=== PATIENT | female | born 1980 | race Caucasian/White ===

== ENCOUNTER 2017-06-07 11:43 | Emergency (ER) | payer OTHER ==
[2017-06-07 12:17] VITALS: BP 136/90; PULSE 85; TEMP 98.1; BMI 31.6
--- NOTE | 2017-06-07 13:07 | PDOC ---
History of Present Illness - General Chief Complaint: Cold Symptoms Stated Complaint: THROAT PAIN, BODY ACHES Time Seen by Provider: 06/07/17 12:49 History Source: Patient Exam Limitations: No Limitations - History of Present Illness Initial Comments: 06/07/17 13:11 37-year-old female with 24 hours of fever, myalgia, mild frontal headache, and sore throat. Patient states has been taking Motrin and Tylenol for fever and myalgia. Patient denies difficulty breathing, vomiting, cough abdominal pain, or nausea. Timing/Duration: 24 hours Severity: mild Associated Symptoms: reports: fever/chills, malaise, weakness, other (sore throat) Past History - Travel Traveled outside of the country in the last 30 days: No - Past Medical History Allergies/Adverse Reactions: Allergies Allergy/AdvReac Type Severity Reaction Status Date / Time No Known Drug Allergies Allergy Unknown Verified 06/07/17 12:18 BEES Allergy Uncoded 06/07/17 12:18 Home Medications: Ambulatory Orders Levetiracetam 250 mg PO BID 08/15/12 Gabapentin [Neurontin -] 600 mg PO TID #0 capsule 08/22/12 Topiramate [Topamax] 25 mg PO BID 08/02/13 COPD: No HTN: Yes Seizures: Yes (Epilepsy since age 24) - Reproductive History LMP Normal: Yes - Suicide/Smoking/Psychosocial Hx Smoking Status: Yes Smoking History: Never smoked Have you smoked in the past 12 months: No Number of Cigarettes Smoked Daily: 0 If you are a former smoker, when did you quit?: quit 3.5 years ago Cigars Per Day: 0 Information on smoking cessation initiated: No Hx Alcohol Use: No Drug/Substance Use Hx: No Substance Use Type: None Hx Substance Use Treatment: No Patient Lives Alone: No Lives with/in: spouse/SO Review of Systems - Review of Systems Able to Perform ROS?: Yes Constitutional: Yes: Fever HEENTM: Yes: Throat Pain Respiratory: No: Symptoms reported Cardiac (ROS): No: Symptoms Reported ABD/GI: No: Symptoms Reported : No: Symptoms Reported Musculoskeletal: Yes: Joint Pain, Muscle Pain Neurological: Yes: Headache *Physical Exam - Vital Signs Last Vital Signs Temp Pulse Resp BP Pulse Ox 98.1 F 85 18 136/90 98 06/07/17 12:15 06/07/17 12:15 06/07/17 12:15 06/07/17 12:15 06/07/17 12:15 - Physical Exam General Appearance: Yes: Nourished, Appropriately Dressed. No: Apparent Distress HEENT: positive: Pharyngeal Erythema, Tonsillar Erythema. negative: Tonsillar Exudate Neck: negative: Lymphadenopathy (R), Lymphadenopathy (L) Respiratory/Chest: positive: Lungs Clear, Normal Breath Sounds. negative: Respiratory Distress, Accessory Muscle Use Cardiovascular: positive: Regular Rhythm, Regular Rate. negative: Murmur Gastrointestinal/Abdominal: positive: Soft. negative: Tenderness Integumentary: positive: Normal Color, Warm, Moist Neurologic: positive: Motor Strength 5/5 (ambulatory) Medical Decision Making - Medical Decision Making 06/07/17 13:17 Patient with URI symptoms along with erythema to the pharyngeal region. Patient ordered for rapid strep. Patient states mother just recently diagnosed with flu 3 days ago. Based on patient's clinical exam patient be treated for influenza if rapid strep is negative 06/07/17 13:50 Rapid strep negative. Patient will be discharged home with Tamiflu with recommendations to continue with Motrin or Tylenol *DC/Admit/Observation/Transfer Diagnosis at time of Disposition: Influenza - Discharge Dispostion Disposition: HOME Condition at time of disposition: Good - Referrals Referrals: Mendez Antonio MD [Primary Care Provider] - - Patient Instructions Printed Discharge Instructions: DI for Influenza -- Adult Additional Instructions: Please take Tamiflu as prescribed until completed. please take Motrin 600 mg every 8 hours adequate fever and pain control. Drink plenty of fluids. If symptoms do not improve with above recommendations you may return to the nearest ED. Otherwise up with the primary care physician. - Post Discharge Activity
== END 2017-06-07 13:54 | disposition home or self-care (01) ==
LOC: JERFT 11:43
DX: J11.1 Influenza due to unidentified influenza virus with other respiratory manifestations (principal); I10 Essential (primary) hypertension; G40.909 Epilepsy, unspecified, not intractable, without status epilepticus; Z87.891 Personal history of nicotine dependence
CPT/HCPCS: 87070; 87430; 99281-25

== ENCOUNTER 2017-08-29 13:12 | Emergency (ER) | payer OTHER ==
[2017-08-29 13:17] VITALS: BMI 31.1
--- NOTE | 2017-08-29 13:42 | PDOC ---
History of Present Illness - General Chief Complaint: Pain, Acute Stated Complaint: BACK PAIN - History of Present Illness Initial Comments: patient is a 37 year old female, with a significant past medical history of epilepsy, HTN, prior kidney stone (2 years ago) and NIDDM, who presents to the emergency department complaining of 5 days of worsening L flank pain and dysuria. Pt states she began experiencing sharp flank plan at home 5 days prior , initially BL and then localizing to the L flank. She states the pain is intermittent, non-radiating, worsened by deep breathing, forward flexion and abdominal torsion. Pt with prior kidney stone 2 years ago, which resolved non- surgically. Pt states her pain is worse, but similar to this prior presentation. Starting last night, pt states the L flank pain has become worse and is more or less constant, 7-8/10 in intensity. She also endorses new dysuria that began last night. Of note, pt recently traveled to [place] for multiple family funerals and was drinking soda for the last few weeks, which she normally does not drink. Pt endorses a diet high in red meat, fatty foods. Pt denies f/c/n/v/d, hematuria, pyuria. Pt also with chronic lower back pain. No hx of STIs. Patient also denies MCKEE, lightheadness, chest pain, shortness of breath, headache or dizziness. Denies frequency, urgency, melena, hematochezia. Allergies: None PMH: Epilepsy, migraines, HTN, NIDDM (on metformin), prior renal stone 2 years ago Past surgical history: Social History: . No smoking , drugs, or alcohol. Sexually active with only, no contraceptive use. PMD: Dr. Antonio 08/29/17 13:39 Past History - Past Medical History Allergies/Adverse Reactions: Allergies Allergy/AdvReac Type Severity Reaction Status Date / Time No Known Drug Allergies Allergy Unknown Verified 08/29/17 13:17 BEES Allergy Uncoded 08/29/17 13:17 Home Medications: Ambulatory Orders Levetiracetam 250 mg PO BID 08/15/12 Gabapentin [Neurontin -] 600 mg PO TID #0 capsule 08/22/12 Topiramate [Topamax] 25 mg PO BID 08/02/13 COPD: No HTN: Yes Seizures: Yes (Epilepsy since age 24) - Suicide/Smoking/Psychosocial Hx Smoking Status: Yes Smoking History: Never smoked Have you smoked in the past 12 months: No Number of Cigarettes Smoked Daily: 0 If you are a former smoker, when did you quit?: quit 3.5 years ago Cigars Per Day: 0 Information on smoking cessation initiated: No Hx Alcohol Use: No Drug/Substance Use Hx: No Substance Use Type: None Hx Substance Use Treatment: No Review of Systems - Review of Systems Comments:: 08/29/17 13:40 GENERAL/CONSTITUTIONAL: No fever or chills. No weakness. HEAD, EYES, EARS, NOSE AND THROAT: No change in vision. No ear pain or discharge. No sore throat. CARDIOVASCULAR: No chest pain or shortness of breath RESPIRATORY: No cough, wheezing, or hemoptysis. GASTROINTESTINAL: No nausea, vomiting, diarrhea or constipation. GENITOURINARY: + mild dysuria beginning last night. +L flank pain with no radiation. No frequency, hematuria, pyuria MUSCULOSKELETAL: No joint or muscle swelling or pain. No neck or back pain. SKIN: No rash NEUROLOGIC: No headache, vertigo, loss of consciousness, or change in strength/ sensation. ENDOCRINE: No increased thirst. No abnormal weight change HEMATOLOGIC/LYMPHATIC: No anemia, easy bleeding, or history of blood clots. ALLERGIC/IMMUNOLOGIC: No hives or skin allergy. 08/29/17 14:19 *Physical Exam - Vital Signs Last Vital Signs Temp Pulse Resp BP Pulse Ox 98.4 F 76 24 137/87 100 08/29/17 13:15 08/29/17 13:15 08/29/17 13:15 08/29/17 13:15 08/29/17 13:15 - Physical Exam Comments: GENERAL: Young woman, Awake, alert, and fully oriented, in no acute distress HEAD: No signs of trauma, normocephalic, atraumatic EYES: PERRLA, EOMI, sclera anicteric, conjunctiva clear ENT: Auricles normal inspection, hearing grossly normal, nares patent, oropharynx clear without exudates. Moist mucosa NECK: Normal ROM, supple, no lymphadenopathy, JVD, or masses LUNGS: No distress, speaks full sentences, clear to auscultation bilaterally HEART: Regular rate and rhythm, normal S1 and S2, no murmurs, rubs or gallops, peripheral pulses normal and equal bilaterally. ABDOMEN: +L sided CVA tenderness. Soft, nontender, normoactive bowel sounds. No guarding, no rebound. No masses EXTREMITIES : Normal inspection, Normal range of motion, no edema. No clubbing or cyanosis. NEUROLOGICAL: Cranial nerves II through XII grossly intact. Normal speech, gait not evaluated, no focal sensorimotor deficits SKIN: Warm, Dry, normal turgor, no rashes or lesions noted 08/29/17 13:40 ED Treatment Course - LABORATORY CBC & Chemistry Diagram: 08/29/17 15:02 08/29/17 14:56 Medical Decision Making - Medical Decision Making 37 yo woman with pmh of HTN, NIDDM and prior renal stone 2 years ago, presenting with 5 days of worsening L flank pain and dysuria beginning last night. Ddx includes kidney stone, pyelonephritis vs. perinephric abscess, UTI, MSK back pain, PID vs. STI, ovarian cyst/torsion/abscess, pancreatitis. Will send cbc, cmp, lipase, UA, b-hcg, gc/chlamydia. Will obtain renal imaging. 08/29/17 14:21 CT abdomen negative for acute pathology. UA negative. Will discharge home with outpt f/u with PMD. 08/29/17 18:08 *DC/Admit/Observation/Transfer Diagnosis at time of Disposition: Back pain - Discharge Dispostion Disposition: HOME Condition at time of disposition: Good Decision to Admit order: No - Referrals Referrals: Mendez Antonio MD [Primary Care Provider] - 1 week - Patient Instructions Printed Discharge Instructions: DI for Low Back Pain Additional Instructions: During your stay at [facility] you were evaluated for left-sided back pain. You received urine studies and a CT scan of your abdomen, which were both normal. Please follow-up with your primary care provider for further management of your medical care. Please take tylenol 650mg every four hours until your pain resolves. Please return to the emergency department if you experience any of the following symptoms: - worsening pain in your back - blood in your urine - persistent fevers/chills - any new or concerning symptoms - Post Discharge Activity
[2017-08-29] MEDS ORDERED: ACETAMINOPHEN 325 MG TABLET (FP) PO ONE (14:09)
[2017-08-29] MEDS ORDERED: ACETAMINOPHEN 325 MG TABLET (FP) ONE (14:39)
--- NOTE | 2017-08-29 14:40 | PDOC ---
Attending Attestation - Resident Resident Name: Otilio Sanchez - ED Attending Attestation I have performed the following: I have examined & evaluated the patient, The case was reviewed & discussed with the resident, I agree w/resident's findings & plan, Exceptions are as noted - HPI HPI: 08/29/17 14:33 37y F pmhx epilipesy, htn, NIDDM, presents with 5 days of nonradiating L flank pain, hx of kidney stones dx clinically by PMD and this feels similar, seems slightly positional and was intermittent but now is constant in nature. Associated with 1 episode of dysuria yesterday, also endorsed some nausea w/o vomiting yesterday. no associated cp, sob, fever/chills, palpitations, abd pain. GENERAL: The patient is awake, alert, and fully oriented, Nontoxic - in no acute distress. HEAD: Normocephalic, atraumatic. EYES: extraocular movements intact, sclera anicteric, conjunctiva clear. ENT: Normal voice, Moist mucous membranes. NECK: Normal range of motion, supple LUNGS: Breath sounds equal, clear to auscultation bilaterally. No wheezes, no rhonchi, no rales. HEART: Regular rate and rhythm, normal S1 and S2 without murmur, rub or gallop. ABDOMEN: Soft, nontender, normoactive bowel sounds. No guarding, no rebound. No CVA tenderness EXTREMITIES: Normal range of motion, no edema. No clubbing or cyanosis. No cords, erythema, or tenderness. NEUROLOGICAL: No facial assymetry, Normal speech, PSYCH: Normal mood, normal affect. SKIN: Warm, Dry, normal turgor, Differential for the patient's symptoms includes possible kidney stones, MSK pain Will obtain UA, CBC, CMP, Will give the patient pain medicine Will reassess 08/29/17 16:59 siobhan lsign pt out to evening attending to fu with CT to r/o kidney stone - Physicial Exam PE: 09/03/17 05:34 see above - Medical Decision Making 09/03/17 05:34 see above
[2017-08-29 15:18] LABS: BASO % 0.5 % (0-2.0); EOS % 1.5 % (0-4.5); HEMATOCRIT 37.1 % (32.4-45.2); HEMOGLOBIN 12.5 GM/dL (10.7-15.3); LYMPH % 40.3 % (8-40); MCH 27.2 pg (25.7-33.7); MCHC 33.7 g/dl (32.0-36.0); MEAN CELL VOLUME 80.6 fl (80-96); MEAN PLT VOLUME 7.7 fl (7.5-11.1); MONO % 5.6 % (3.8-10.2); NEUT % 52.1 % (42.8-82.8); PLATELET COUNT 341 K/MM3 (134-434); RBC 4.61 M/mm3 (3.60-5.2); RDW 14.4 % (11.6-15.6); WHITE BLOOD COUNT 9.9 K/mm3 (4.0-10.0)
[2017-08-29 15:21] LABS: URINE APPEARANCE CLEAR; URINE BILIRUBIN NEGATIVE (<2.0 mg/dL); URINE COLOR YELLOW; URINE GLUCOSE (UA) NEGATIVE (NEGATIVE); URINE KETONE NEGATIVE (NEGATIVE); URINE LEUK ESTERASE NEGATIVE (NEGATIVE); URINE NITRITE NEGATIVE (NEGATIVE); URINE PROTEIN NEGATIVE (NEGATIVE); URINE UROBILINOGEN NEGATIVE mg/dL (0.2-1.0)
[2017-08-29 15:42] LABS: ALBUMIN 4.1 g/dl (3.4-5.0); BLOOD UREA NITROGEN 7 mg/dL (7-18); CHLORIDE 108 mmol/L (98-107); POTASSIUM 4.1 mmol/L (3.5-5.1); SODIUM 140 mmol/L (136-145)
[2017-08-29] MEDS ORDERED: KETOROLAC TROMETHAMINE 10 MG TABLET PO ONE (15:58)
[2017-08-29 16:12] LABS: ALK PHOS 87 U/L (45-117); ANION GAP 5 (8-16); BILIRUBIN,TOTAL 0.6 mg/dL (0.2-1.0); CO2 27 mmol/L (21-32); CREATININE 0.8 mg/dL (0.55-1.02); GLUCOSE,RANDOM 109 mg/dL (74-106); SGOT/AST 37 U/L (15-37); SGPT/ALT 32 U/L (12-78); TOT PROT 7.4 g/dl (6.4-8.2)
[2017-08-29] MEDS ORDERED: KETOROLAC TROMETHAMINE 30 MG/1 ML VIAL IVPUSH ONE (16:14)
[2017-08-29] MEDS ORDERED: KETOROLAC TROMETHAMINE 30 MG/1 ML VIAL ONE (16:16)
[2017-08-29] MEDS ORDERED: SODIUM CHLORIDE 1,000 ML IV SCH (17:45)
--- NOTE | 2017-08-29 18:42 | PDOC ---
*Physical Exam - Vital Signs Last Vital Signs Temp Pulse Resp BP Pulse Ox 98.4 F 76 24 137/87 100 08/29/17 13:15 08/29/17 13:15 08/29/17 13:15 08/29/17 13:15 08/29/17 13:15 - Physical Exam Comments: 08/29/17 18:40 Gen: aaox3, nad heart: +s1s2 reg lungs: cta b/l abd: soft, nt/nd +bs ext: no c/c/e back: no midline ttp, no stepoffs or deformities neuro: no focal deficits ED Treatment Course - LABORATORY CBC & Chemistry Diagram: 08/29/17 15:02 08/29/17 14:56 - ADDITIONAL ORDERS Additional order review: Laboratory Results 08/29/17 08/29/17 08/29/17 15:02 14:56 14:56 Sodium Potassium Chloride Carbon Dioxide Anion Gap BUN Creatinine Creat Clearance w eGFR Random Glucose Calcium Total Bilirubin AST ALT Alkaline Phosphatase Total Protein Albumin Lipase 201 Beta HCG, Quant < 1.0 Urine Color Yellow Urine Appearance Clear Urine pH 6.0 D Ur Specific Benton 1.015 Urine Protein Negative Urine Glucose (UA) Negative Urine Ketones Negative Urine Blood Negative Urine Nitrite Negative Urine Bilirubin Negative Urine Urobilinogen Negative Ur Leukocyte Esterase Negative 08/29/17 14:56 Sodium 140 Potassium 4.1 Chloride 108 H Carbon Dioxide 27 Anion Gap 5 L BUN 7 Creatinine 0.8 Creat Clearance w eGFR > 60 Random Glucose 109 H Calcium 9.0 Total Bilirubin 0.6 AST 37 ALT 32 Alkaline Phosphatase 87 Total Protein 7.4 Albumin 4.1 Lipase Beta HCG, Quant Urine Color Urine Appearance Urine pH Ur Specific Benton Urine Protein Urine Glucose (UA) Urine Ketones Urine Blood Urine Nitrite Urine Bilirubin Urine Urobilinogen Ur Leukocyte Esterase 08/29/17 15:02 RBC 4.61 MCV 80.6 MCHC 33.7 RDW 14.4 MPV 7.7 Neutrophils % 52.1 D Lymphocytes % 40.3 H D Monocytes % 5.6 D Eosinophils % 1.5 D Basophils % 0.5 - Medications Given in the ED: ED Medications Discontinued Medications Generic Name Dose Route Start Last Admin Trade Name Freq PRN Reason Stop Dose Admin Acetaminophen 650 mg 08/29/17 14:09 08/29/17 14:45 Tylenol - PO 08/29/17 14:10 650 mg ONCE ONE Administration Ketorolac Tromethamine 10 mg 08/29/17 15:58 08/29/17 17:39 Toradol PO 08/29/17 15:59 Not Given ONCE ONE Ketorolac Tromethamine 30 mg 08/29/17 16:14 08/29/17 16:38 Toradol Injection - IVPUSH 08/29/17 16:15 30 mg ONCE ONE Administration Medical Decision Making - Medical Decision Making 08/29/17 18:41 a/p: 37yo female with L flank pain - signed out by the prior attending pending ct abd/pelvis to eval for flank pain -pt states feeling better -seen by dr. rasmussen in the ed -no renal stones seen on ct -pt aware of liver cysts -discussed ct results and gave patient a copy of ct results answered all questions stable for d/c to home and follow up with PMD as outpt *DC/Admit/Observation/Transfer Diagnosis at time of Disposition: Back pain - Discharge Dispostion Disposition: HOME Condition at time of disposition: Good - Referrals Referrals: Mendez Antonio MD [Primary Care Provider] - 1 week - Patient Instructions Additional Instructions: During your stay at [facility] you were evaluated for left-sided back pain. You received urine studies and a CT scan of your abdomen, which were both normal. Please follow-up with your primary care provider for further management of your medical care. - Post Discharge Activity
[2017-08-29 19:15] VITALS: BP 124/93; PULSE 68; TEMP 98.3
== END 2017-08-29 19:15 | disposition home or self-care (01) ==
LOC: JER 13:12
DX: R10.32 Left lower quadrant pain (principal); I10 Essential (primary) hypertension; E11.9 Type 2 diabetes mellitus without complications; Z79.84 Long term (current) use of oral hypoglycemic drugs; Z87.442 Personal history of urinary calculi; Z87.891 Personal history of nicotine dependence
CPT/HCPCS: 36415; 74176; 80053; 81003; 83690; 84702; 85025; 87491; 87591; 99284-25; J7030

== ENCOUNTER 2018-03-10 08:40 | Emergency (ER) | payer OTHER ==
[2018-03-10 09:11] VITALS: BP 112/77; PULSE 85; TEMP 97.9; BMI 28.3
--- NOTE | 2018-03-10 10:38 | PDOC ---
History of Present Illness - General Chief Complaint: Respiratory Stated Complaint: SOB Time Seen by Provider: 03/10/18 10:15 History Source: Patient - History of Present Illness Initial Comments: 03/10/18 10:33 Patient with no significant past medical history present with complaint of 4 day history of persistent cough, nasal congestion, scratchy throat and intermittent chest tightness. Denies fever, chills. Denies any other symptoms Timing/Duration: other (4 days) Past History - Past Medical History Allergies/Adverse Reactions: Allergies Allergy/AdvReac Type Severity Reaction Status Date / Time No Known Drug Allergies Allergy Unknown Verified 03/10/18 10:02 BEES Allergy Uncoded 03/10/18 10:02 Home Medications: Ambulatory Orders Levetiracetam 250 mg PO BID 08/15/12 Gabapentin [Neurontin -] 600 mg PO TID #0 capsule 08/22/12 Topiramate [Topamax] 25 mg PO BID 08/02/13 Azithromycin [Zithromax Tri-Dl (3 DAYS) -] 500 mg PO DAILY #3 tablet 03/10/18 Benzonatate [Tessalon Pearls -] 100 mg PO TID PRN #21 capsule 03/10/18 Ipratropium [place] 2 spray NS BID PRN #1 spray 03/10/18 Methylprednisolone [Medrol Dose Dl] 4 mg PO ASDIR #21 tablet 03/10/18 COPD: No Diabetes: Yes (PREDIABETIC) HTN: Yes Seizures: Yes (Epilepsy since age 24) - Suicide/Smoking/Psychosocial Hx Smoking Status: Yes Smoking History: Never smoked Have you smoked in the past 12 months: No Number of Cigarettes Smoked Daily: 0 If you are a former smoker, when did you quit?: quit 3.5 years ago Cigars Per Day: 0 Hx Alcohol Use: No Drug/Substance Use Hx: No Substance Use Type: None Hx Substance Use Treatment: No Review of Systems - Review of Systems Able to Perform ROS?: Yes Is the patient limited Thai proficient: No Constitutional: No: Chills, Fever HEENTM: Yes: Symptoms Reported, See HPI, Nose Congestion, Throat Pain. No: Eye Pain, Blurred Vision, Tearing, Recent change in vision, Double Vision, Cataracts , Ear Pain, Ocular Prothesis, Ear Discharge, Nose Pain, Tinnitus, Nose Bleeding , Hearing Loss, Throat Swelling, Mouth Pain, Dental Problems, Difficulty Swallowing, Mouth Swelling, Other Respiratory: Yes: See HPI, Cough. No: Orthopnea, Shortness of Breath, SOB with Exertion, SOB at Rest, Stridor, Wheezing, Productive cough, Hemoptysis Cardiac (ROS): Yes: Chest Tightness (intermittent). No: Symptoms Reported, See HPI, Chest Pain, Edema, Irregular Heart Rate, Lightheadedness, Palpitations, Syncope, Other ABD/GI: No: Symptoms Reported, See HPI, Abdominal Distended, Abd. Pain w/ defecation, Blood Streaked Bowels, Constipated, Diarrhea, Difficulty Swallowing , Nausea, Poor Appetite, Poor Fluid Intake, Rectal Bleeding, Vomiting, Indigestion, Abdominal cramping, Tarry Stools, Other All Other Systems: Reviewed and Negative *Physical Exam - Vital Signs Last Vital Signs Temp Pulse Resp BP Pulse Ox 97.9 F 85 20 112/77 97 03/10/18 09:08 03/10/18 09:08 03/10/18 09:08 03/10/18 09:08 03/10/18 09:08 - Physical Exam Comments: 03/10/18 10:34 GENERAL: Well developed, well nourished. Awake and alert. No acute distress. HEENT: Normocephalic, atraumatic. PERRLA, EOMI. No conjunctival pallor. Sclera are non-icteric. Moist mucous membranes. Oropharynx is clear. NECK: Supple. Full ROM. CARDIOVASCULAR: Regular rate and rhythm. No murmurs, rubs, or gallops. Distal pulses are 2+ and symmetric. PULMONARY: No evidence of respiratory distress. Lungs clear to auscultation bilaterally. No wheezing, rales or rhonchi. ABDOMINAL: Soft. Non-tender. Non-distended. No rebound or guarding. No organomegaly. Normoactive bowel sounds. MUSCULOSKELETAL Normal range of motion at all joints. EXTREMITIES: No cyanosis. No clubbing. No edema. No calf tenderness. SKIN: Warm and dry. Normal capillary refill. No rashes. No jaundice. NEUROLOGICAL: Alert, awake, appropriate. Gait is normal without ataxia. PSYCHIATRIC: Cooperative. Good eye contact. Appropriate mood General Appearance: Yes: Nourished, Appropriately Dressed. No: Apparent Distress Medical Decision Making - Medical Decision Making 03/10/18 10:34 Patient with no significant past medication present with complaint of 4 day history of persistent cough, nasal congestion, and runny nose and 2 days history of intermittent chest tightness. Exam significant for no wheezing with lungs clear to auscultation bilateral. Patient stable for discharge on outpatient treatment for URI and cough with PCP follow-up. *DC/Admit/Observation/Transfer Diagnosis at time of Disposition: Cough URI (upper respiratory infection) Qualifiers: URI type: unspecified URI Qualified Code(s): J06.9 - Acute upper respiratory infection, unspecified Pharyngitis Qualifiers: Pharyngitis/tonsillitis etiology: unspecified etiology Qualified Code(s): J02.9 - Acute pharyngitis, unspecified - Discharge Dispostion Disposition: HOME Condition at time of disposition: Stable Decision to Admit order: No - Prescriptions Prescriptions: Azithromycin [Zithromax Tri-Dl (3 DAYS) -] 500 mg PO DAILY #3 tablet Benzonatate [Tessalon Pearls -] 100 mg PO TID PRN #21 capsule PRN Reason: Cough Ipratropium [place] 2 spray NS BID PRN #1 spray PRN Reason: nasal congestion Methylprednisolone [Medrol Dose Dl] 4 mg PO ASDIR #21 tablet - Referrals Referrals: Mendez Antonio MD [Primary Care Provider] - - Patient Instructions Printed Discharge Instructions: Common Cold Additional Instructions: take medication as prescribed. increase fluid intake. follow-up with PCP as needed - Post Discharge Activity
== END 2018-03-10 10:42 | disposition home or self-care (01) ==
LOC: JERFT 08:40
DX: J06.9 Acute upper respiratory infection, unspecified (principal); J02.9 Acute pharyngitis, unspecified; I10 Essential (primary) hypertension; G40.909 Epilepsy, unspecified, not intractable, without status epilepticus; R73.03 Prediabetes
CPT/HCPCS: 99281-25

== ENCOUNTER 2018-06-09 10:40 | Emergency (ER) | payer OTHER ==
[2018-06-09 10:48] VITALS: BP 151/93; PULSE 86; TEMP 98.4; BMI 32.5
--- NOTE | 2018-06-09 11:01 | PDOC ---
History of Present Illness - General Chief Complaint: Sore Throat Stated Complaint: SORE THROAT, CONJESTED Time Seen by Provider: 06/09/18 10:59 History Source: Patient, Old Records Exam Limitations: No Limitations - History of Present Illness Initial Comments: 06/09/18 11:01 CHIEF COMPLAINT: Sore throat, congestion HISTORY OF PRESENT ILLNESS: This is a 38-year-old female with a history of seizure disorder (last seizu REVIEW OF SYSTEMS: GENERAL/CONSTITUTIONAL: Subjective fevers. No nightsweats or weight loss. ENT: Nasal congestion, sore throat, painful swallowing. LUNGS: Dry cough. Pleuritic pain. No shortness of breath. HEART: Chest pain with deep breathing/coughing only. No palpitations. No leg swelling. NEURO: No weakness or numbness. SKIN: No rashes or easy bruising. PHYSICAL EXAM: GENERAL: Alert, oriented, no acute distress. EENT: Coryza, rhinorrhea, pharyngeal erythema without tonsillar swelling or exudates. PULM: Wheezes right upper lobe. No tachypnea, speaking full sentences. CARDIAC: RRR, S1/S2, no murmurs. NEURO: CN II-XII grossly intact. Ambulatory with steady gait. SKIN: No rashes or lesions. Past History - Past Medical History Allergies/Adverse Reactions: Allergies Allergy/AdvReac Type Severity Reaction Status Date / Time No Known Drug Allergies Allergy Unknown Verified 06/09/18 11:03 BEES Allergy Uncoded 06/09/18 11:03 Home Medications: Ambulatory Orders Levetiracetam 250 mg PO BID 08/15/12 Gabapentin [Neurontin -] 600 mg PO TID #0 capsule 08/22/12 Topiramate [Topamax] 25 mg PO BID 08/02/13 Benzonatate [Tessalon Pearls -] 100 mg PO TID PRN #21 capsule 06/09/18 Ibuprofen [Motrin -] 600 mg PO QID PRN #20 tablet 06/09/18 Metformin HCl [Glucophage] 1,000 mg PO BID 06/09/18 COPD: No Diabetes: Yes (PREDIABETIC) HTN: Yes Seizures: Yes (Epilepsy since age 24) - Suicide/Smoking/Psychosocial Hx Smoking Status: Yes Smoking History: Never smoked Have you smoked in the past 12 months: No Number of Cigarettes Smoked Daily: 0 If you are a former smoker, when did you quit?: quit 3.5 years ago Cigars Per Day: 0 Hx Alcohol Use: No Drug/Substance Use Hx: No Substance Use Type: None Hx Substance Use Treatment: No *Physical Exam - Vital Signs Last Vital Signs Temp Pulse Resp BP Pulse Ox 98.4 F 86 20 151/93 100 06/09/18 10:46 06/09/18 10:46 06/09/18 10:46 06/09/18 10:46 06/09/18 10:46 Moderate Sedation - Procedure Monitoring Vital Signs: Procedure Monitoring Vital Signs Temperature 98.4 F 06/09/18 10:46 Pulse Rate 86 06/09/18 10:46 Respiratory Rate 20 06/09/18 10:46 Blood Pressure 151/93 06/09/18 10:46 O2 Sat by Pulse Oximetry (%) 100 06/09/18 10:46 Medical Decision Making - Medical Decision Making 06/09/18 11:54 A/P: 38-year-old female with flu-like symptoms. Rapid flu neg Rapid strep neg CXR wet read: no acute process Ibuprofen for pain *DC/Admit/Observation/Transfer Diagnosis at time of Disposition: Throat pain in adult - Discharge Dispostion Disposition: HOME Condition at time of disposition: Stable Decision to Admit order: No - Referrals Referrals: Mendez Antonio MD [Primary Care Provider] - 1 week - Patient Instructions Printed Discharge Instructions: DI for Pharyngitis/Tonsillopharyngitis -- Adult Additional Instructions: Your rapid strep, rapid flu, and chest xray are all negative Rest and stay well-hydrated Take ibuprofen and Tessalon as prescribed for symptoms Follow up with Dr. Combs next week Return for difficulty breathing or any other concerning symptoms - Post Discharge Activity Forms/Work/School Notes: Back to Work
[2018-06-09] MEDS ORDERED: IBUPROFEN 600 MG TABLET (FP) PO ONE ×2 (11:06→11:28)
== END 2018-06-09 12:07 | disposition home or self-care (01) ==
LOC: JERFT 10:40
DX: J02.9 Acute pharyngitis, unspecified (principal); I10 Essential (primary) hypertension; E11.9 Type 2 diabetes mellitus without complications; Z79.84 Long term (current) use of oral hypoglycemic drugs; G40.909 Epilepsy, unspecified, not intractable, without status epilepticus
CPT/HCPCS: 71046-TC-FY; 84703; 87070; 87804; 87880; 99281-25

== ENCOUNTER 2018-07-29 14:51 | Emergency (ER) | payer OTHER ==
[2018-07-29] MEDS ORDERED: ONDANSETRON 4 MG/2 ML VIAL IVPUSH ONE (14:56)
[2018-07-29] MEDS ORDERED: SODIUM CHLORIDE 1,000 ML IV STA ×2 (14:56→16:24)
--- NOTE | 2018-07-29 14:56 | PDOC ---
Rapid Medical Evaluation Time Seen by Provider: 07/29/18 14:54 Medical Evaluation: Allergies Allergy/AdvReac Type Severity Reaction Status Date / Time No Known Drug Allergies Allergy Unknown Verified 06/09/18 11:03 BEES Allergy Uncoded 06/09/18 11:03 07/29/18 14:54 I have performed a brief in-person evaluation of this patient. The patient presents with a chief complaint of: nausea, vomiting and chills; also with rash to chest x2 weeks Pertinent physical exam findings: papular rash to clothing lines. ABD SNTND. No CVAT. I have ordered the following: labs, urine The patient will proceed to the ED for further evaluation. Discharge Disposition - Diagnosis Nausea & vomiting - Referrals - Patient Instructions - Post Discharge Activity
[2018-07-29 15:00] VITALS: PULSE 97; BMI 33.3
[2018-07-29 15:23] LABS: BASO % 0.3 % (0-2.0); EOS % 0.1 % (0-4.5); HEMATOCRIT 39.1 % (32.4-45.2); HEMOGLOBIN 12.6 GM/dL (10.7-15.3); MCH 24.2 pg (25.7-33.7); MCHC 32.2 g/dl (32.0-36.0); MEAN CELL VOLUME 75.2 fl (80-96); MONO % 1.7 % (3.8-10.2); NEUT % 93.9 % (42.8-82.8); PLATELET COUNT 398 K/MM3 (134-434); WHITE BLOOD COUNT 13.8 K/mm3 (4.0-10.0)
[2018-07-29] MEDS ORDERED: ONDANSETRON 4 MG/2 ML VIAL ONE (15:39)
[2018-07-29] MEDS ORDERED: ACETAMINOPHEN 1000 MG/100 ML VIAL (NON FORMULARY) IVPB ONE (15:52)
--- NOTE | 2018-07-29 15:59 | PDOC ---
History of Present Illness - General Chief Complaint: Nausea/Vomiting Stated Complaint: VOMITING / NAUSEA / RASH ON CHEST Time Seen by Provider: 07/29/18 14:54 History Source: Patient Exam Limitations: No Limitations - History of Present Illness Initial Comments: Pt is a 38 yo F, with PMH of HTN, NIDDM (on metformin, sugars controlled usually in 100s), epilepsy (last sz 1 mo ago), and nephrolithiasis, who is presenting with complaints of diffuse abdominal pain, and many episodes of NBNB vomiting and loose brown stool since this AM. Pt also endorses subjective fever/ chills, and she feels mild discomfort in her chest and back as well after multiple episodes of vomiting. Pt states the symptoms have started since she woke up, and has had consistent vomiting and loose stool since that time. Pt had a home cooked meal last night, and nobody else in the house is sick that ate the same food. Pt did not take any OTC medications before coming to the ER, and has not been able to tolerate PO food or fluid intake since this AM. Pt denies any headache, vision changes, syncope, chest pain, palpitations, SOB, urinary symptoms, or leg swelling. Social: Pt denies any cigarette, alcohol, or drug use. Pt denies any recent travel or sick contacts. Surgical: . Family: no relevant history. 07/29/18 16:47 Past History - Travel Traveled outside of the country in the last 30 days: No Close contact w/someone who was outside of country & ill: No - Past Medical History Allergies/Adverse Reactions: Allergies Allergy/AdvReac Type Severity Reaction Status Date / Time No Known Drug Allergies Allergy Unknown Verified 06/09/18 11:03 BEES Allergy Uncoded 06/09/18 11:03 Home Medications: Ambulatory Orders Levetiracetam 250 mg PO HS 08/15/12 Gabapentin [Neurontin -] 600 mg PO TID #0 capsule 08/22/12 Topiramate [Topamax] 200 mg PO BID 08/02/13 Metformin HCl [Glucophage] 1,000 mg PO BID 06/09/18 Famotidine [Pepcid -] 20 mg PO DAILY PRN #7 tablet 07/29/18 Levetiracetam 1,200 mg PO DAILY 07/29/18 Zonisamide [Zonegran] 100 mg PO BID 07/29/18 COPD: No Diabetes: Yes (PREDIABETIC) HTN: Yes Seizures: Yes (Epilepsy since age 24) - Surgical History Abdominal Surgery: Yes () - Suicide/Smoking/Psychosocial Hx Smoking Status: Yes Smoking History: Never smoked Have you smoked in the past 12 months: No Number of Cigarettes Smoked Daily: 0 If you are a former smoker, when did you quit?: quit 3.5 years ago Cigars Per Day: 0 Information on smoking cessation initiated: No Hx Alcohol Use: No Drug/Substance Use Hx: No Substance Use Type: None Hx Substance Use Treatment: No Review of Systems - Review of Systems Able to Perform ROS?: Yes Is the patient limited Maori proficient: No Constitutional: Yes: Chills, Fever (subjective), Weight Stable. No: Diaphoresis , Loss of Appetite, Malaise, Night Sweats, Weakness HEENTM: No: Blurred Vision, Double Vision, Nose Congestion, Throat Pain, Throat Swelling, Difficulty Swallowing Respiratory: No: Cough, Orthopnea, Shortness of Breath, Productive cough, Hemoptysis Cardiac (ROS): No: Chest Pain, Edema, Irregular Heart Rate, Lightheadedness, Palpitations, Syncope, Chest Tightness ABD/GI: Yes: See HPI, Diarrhea, Nausea, Vomiting. No: Abdominal Distended, Blood Streaked Bowels, Constipated, Poor Appetite, Poor Fluid Intake, Indigestion, Abdominal cramping : No: Burning, Dysuria, Frequency, Pain, Urgency Musculoskeletal: Yes: Muscle Pain (diffuse body aches and shoulder pain after vomiting). No: Back Pain, Joint Pain, Muscle Weakness, Neck Pain, Joint Stiffness Integumentary: Yes: Rash (rash/acne on chest x2 weeks along chest) Neurological: Yes: Seizure. No: Headache, Numbness, Weakness, Unsteady Gait, Dizziness Psychiatric: No: Sleep Pattern Change, Change in Appetite Endocrine: No: Increased Urine, Change in Weight Hematologic/Lymphatic: No: Anemia, Blood Clots, Easy Bleeding, Easy Bruising All Other Systems: Reviewed and Negative *Physical Exam - Vital Signs Last Vital Signs Temp Pulse Resp BP Pulse Ox 99.4 F 97 H 20 145/100 99 07/29/18 14:56 07/29/18 14:56 07/29/18 14:56 07/29/18 14:56 07/29/18 14:56 - Physical Exam Comments: Low grade temp 99.4 oral, HR 97, 99% on RA. Pt has active NBNB vomiting in ED, appears uncomfortable. Obese body habitus. PE showed pt alert and oriented. bobbin drier generally intact, muscular strength and sensation intact. No tenderness elicited with neck flexion or extension. No midline spinal tenderness. Head normocephalic, atraumatic. Eyes PERRLA, EOMI. Oropharynx without erythema or exudates, no LAD b/l. No nasal congestion, hearing intact. Clear heart sounds, S1/S2, no JVD, b/l pedal edema, or heart murmur. Clear lung sounds, no respiratory distress, wheezes, crackles, or accessory muscle use. No abdominal or CVA tenderness to palpation, no rebound, no guarding. Abdomen soft, non-distended, and with HYPERactive bowel sounds. Small pustules/comedones on chest along area of bra straps. Skin without jaundice or other rash/petechiae. 07/29/18 16:09 07/29/18 16:17 ED Treatment Course - LABORATORY CBC & Chemistry Diagram: 07/29/18 15:14 07/29/18 15:14 - ADDITIONAL ORDERS Additional order review: 07/29/18 15:14 RBC 5.20 MCV 75.2 L MCHC 32.2 RDW 16.0 H MPV 7.0 L Neutrophils % 93.9 H D Lymphocytes % 4.0 L D Monocytes % 1.7 L Eosinophils % 0.1 D Basophils % 0.3 Medical Decision Making - Medical Decision Making Pt was seen at bedside, also will be seen by attending Dr. Alexander. Pt presenting with complaints of diffuse abdominal pain, and many episodes of NBNB vomiting and loose brown stool since this AM. Pt also endorses subjective fever/ chills, and she feels mild discomfort in her chest and back as well after multiple episodes of vomiting. Pt states the symptoms have started since she woke up, and has had consistent vomiting and loose stool since that time. Pt had a home cooked meal last night, and nobody else in the house is sick that ate the same food. Pt did not take any OTC medications before coming to the ER, and has not been able to tolerate PO food or fluid intake since this AM. Pt denies any headache, vision changes, syncope, chest pain, palpitations, SOB, urinary symptoms, or leg swelling. Likely viral gastroenteritis considering low-grade temp with n/v/d that is NBNB (less likely bacterial food poisoning). Pt has no gastritis history, NSAIDS or alcohol use. Booerhaave and gastric perforation less likely as pt appears fairly comfortable, no chest crepitus, abdomen is non-distended and non-tender. Ordered work-up including CBC, CMP, UA, urine culture, urine , chest x- ray, rapid influenza. Provided 2 L IV NS, 20 mg IV pepcid, 4 mg IV zofran, 1 g ofirmev, for improvement of nausea and vomiting. Will continue to reassess pt and monitor for symptomatic improvement. 07/29/18 15:32 CBC: WBC 13.8, with neutrophilic predominance CMP generally WNL, lipase 193 ECG: NSR, QTc 500, MN 126. QRS 100. TWIs in V2-V3, not present on prior ECG ( 2012). No significant ST segment changes. 07/29/18 16:24 Pt improved after pepcid, zofran, reglan and benadryl. Pt tolerated PO intake in the ED with no further vomiting or diarrhea. Pt to follow-up with PCP. Sent PO 20 mg pepcid to pt pharmacy. Strict return precautions provided with pt understanding. 07/29/18 18:35 *DC/Admit/Observation/Transfer Diagnosis at time of Disposition: Nausea & vomiting Qualifiers: Vomiting type: unspecified Vomiting Intractability: non-intractable Qualified Code(s): R11.2 - Nausea with vomiting, unspecified - Discharge Dispostion Disposition: HOME Condition at time of disposition: Improved Decision to Admit order: No - Prescriptions Prescriptions: Famotidine [Pepcid -] 20 mg PO DAILY PRN #7 tablet PRN Reason: Indigestion - Referrals Referrals: Deion Ramos MD [Staff Physician] - - Patient Instructions Printed Discharge Instructions: DI for Viral Gastroenteritis -- Adult Additional Instructions: You were seen in the ER today for nausea, vomiting, and diarrhea which improved after medications and fluids. The results of your labs and imaging today showed a small infection, likely due to a virus, but were otherwise normal. Please follow-up with your primary care doctor within 1-2 days to discuss your visit and make sure your symptoms have improved. Please return to the ER if you have any worsening pain, development of fevers or chills, loss of consciousness, inability to tolerate food or fluids, or any other concerns. I have sent pepcid (acid change coordinator) to your pharmacy. Please take this medication as prescribed. - Post Discharge Activity
[2018-07-29] MEDS ORDERED: ACETAMINOPHEN INJECTION 100 ML IVPB ONE (16:05)
[2018-07-29 16:10] LABS: PH,URINE 5.5 (5.0-8.0); URINE APPEARANCE CLEAR; URINE BILIRUBIN NEGATIVE (NEGATIVE); URINE COLOR YELLOW; URINE GLUCOSE (UA) 1+ (NEGATIVE); URINE KETONE 3+ (NEGATIVE); URINE LEUK ESTERASE NEGATIVE (NEGATIVE); URINE NITRITE NEGATIVE (NEGATIVE); URINE PROTEIN TRACE (NEGATIVE); URINE UROBILINOGEN 0.2 mg/dL (0.2-1.0)
[2018-07-29 16:13] LABS: ALBUMIN 4.2 g/dl (3.4-5.0); ALK PHOS 107 U/L (45-117); ANION GAP 11 MMOL/L (8-16); BILIRUBIN,TOTAL 0.7 mg/dL (0.2-1); BLOOD UREA NITROGEN 12 mg/dL (7-18); CALCIUM 9.1 mg/dL (8.5-10.1); CHLORIDE 104 mmol/L (98-107); CO2 23 mmol/L (21-32); CREATININE 0.9 mg/dL (0.55-1.3); GLUCOSE,RANDOM 153 mg/dL (74-106); LIPASE 193 U/L (73-393); POTASSIUM 4.6 mmol/L (3.5-5.1); SGOT/AST 65 U/L (15-37); SGPT/ALT 61 U/L (13-61); SODIUM 138 mmol/L (136-145); TOT PROT 8.2 g/dl (6.4-8.2)
[2018-07-29] MEDS ORDERED: FAMOTIDINE 20 MG/50 ML IVPB 20 MG/50 ML MG IVPB ONE ×2 (16:24→17:06)
--- NOTE | 2018-07-29 16:26 | PDOC ---
Attending Attestation - Resident Resident Name: TrishRosa - ED Attending Attestation I have performed the following: I have examined & evaluated the patient, The case was reviewed & discussed with the resident, I agree w/resident's findings & plan - HPI HPI: 07/29/18 16:22 38-year-old female with hypertension, diabetes presents with intractable nausea/ vomiting/diarrhea/abdominal pain since this morning. Patient was in her usual state of normal health, awoke this morning with multiple episodes of nonbloody nonbilious emesis and watery diarrhea, epigastric abdominal pain radiating to the back which is constant, chills but no fever. Never had indication for endoscopy or colonoscopy, no history of recurring GI issues. No recent travel or antibiotics, has been visiting a hospital frequently because her daughter had surgery. Ate rice and zucchini last night but nobody else got sick from it. No excessive NSAID or alcohol use - Physicial Exam PE: 07/29/18 16:23 Temp 99.4, vitals otherwise stable Dry mucosa, no jaundice or pallor Neck is supple, lying comfortably in stretcher speaking full sentences Heart is regular, lungs are clear Abdomen is soft/nondistended, epigastric discomfort to palpation without guarding or rebound. No right upper quadrant tenderness. No CVA tenderness. Rash as noted, not petechial - Medical Decision Making 07/29/18 16:24 38-year-old female with nausea/vomiting/diarrhea/epigastric discomfort that began this morning, no findings on examination to suggest focal peritoneal process, hemodynamically stable. Presentation seems most consistent with gastritis/gastroenteritis, question viral versus food mediated. Labs show slight leukocytosis but normal LFTs and lipase Received IV fluids, antiemetics, antacids No indication for emergent imaging We'll reassess, PO trial, and dispo accordingly. Heart Score/ECG Review #1 ECG reviewed & interpreted by me at: 14:54 General ECG Interpretation: Sinus Rhythm, Normal Rate (96), Normal Intervals ( QTC prolonged at 500), No acute ischemic changes
[2018-07-29] MEDS ORDERED: METOCLOPRAMIDE HCL INJECTION 10 MG/2 ML VIAL IVPUSH ONE (17:34)
[2018-07-29] MEDS ORDERED: METOCLOPRAMIDE HCL INJECTION 10 MG/2 ML VIAL ONE (17:53)
[2018-07-29 18:59] VITALS: BP 118/72; TEMP 99
[2018-07-29 19:08] LABS: PLATELET ESTIMATE ADEQUATE
--- NOTE | 2018-07-30 11:05 | EKG ---
Test Reason : Blood Pressure : / mmHG Vent. Rate : 096 BPM Atrial Rate : 096 BPM P-R Int : 126 ms QRS Dur : 100 ms QT Int : 396 ms P-R-T Axes : 039 043 027 degrees QTc Int : 500 ms NORMAL SINUS RHYTHM CANNOT RULE OUT ANTERIOR INFARCT , AGE UNDETERMINED PROLONGED QT ABNORMAL ECG WHEN COMPARED WITH ECG OF 19-AUG-2012 19:28, QT HAS LENGTHENED Confirmed by MARINO WASHINGTON, AVTAR ([id number]) on 07/30/2018 11:05:07 AM Referred By: Confirmed By:AVTAR PICHARDO MD
== END 2018-07-29 18:47 | disposition home or self-care (01) ==
LOC: JER 14:51
PROC: 3E0337Z Introduction of Electrolytic and Water Balance Substance into Peripheral Vein, Percutaneous Approach (ICD-10-PCS; principal; 2018-07-29)
PROC: 3E033NZ Introduction of Analgesics, Hypnotics, Sedatives into Peripheral Vein, Percutaneous Approach (ICD-10-PCS; 2018-07-29)
PROC: 3E033GC Introduction of Other Therapeutic Substance into Peripheral Vein, Percutaneous Approach (ICD-10-PCS; 2018-07-29)
PROC: 3E033GC Introduction of Other Therapeutic Substance into Peripheral Vein, Percutaneous Approach (ICD-10-PCS; 2018-07-29)
PROC: 3E033GC Introduction of Other Therapeutic Substance into Peripheral Vein, Percutaneous Approach (ICD-10-PCS; 2018-07-29)
PROC: 3E033GC Introduction of Other Therapeutic Substance into Peripheral Vein, Percutaneous Approach (ICD-10-PCS; 2018-07-29)
DX: A08.4 Viral intestinal infection, unspecified (principal); B97.89 Other viral agents as the cause of diseases classified elsewhere; I10 Essential (primary) hypertension; E11.9 Type 2 diabetes mellitus without complications; Z79.84 Long term (current) use of oral hypoglycemic drugs; G40.909 Epilepsy, unspecified, not intractable, without status epilepticus
CPT/HCPCS: 36415; 71046-TC-FY; 80053; 81003; 83690; 84703; 85025; 87086; 87804; 93005; 93010; 96361; 96365; 96375; 99283-25; J0131; J7030

== ENCOUNTER 2019-05-18 12:33 | Emergency (ER) | payer OTHER ==
[2019-05-18 12:48] VITALS: BP 127/82; PULSE 76; TEMP 98.2; BMI 30.9
--- NOTE | 2019-05-18 14:33 | PDOC ---
History of Present Illness - General Chief Complaint: Cold Symptoms Stated Complaint: FLU SYMPTOMS Time Seen by Provider: 05/18/19 13:26 - History of Present Illness Initial Comments: 05/18/19 14:32 39-year-old female with influenza-like symptoms x2 days 05/18/19 14:32 Prediabetic hypertensive with seizure disorder Past History - Past Medical History Allergies/Adverse Reactions: Allergies Allergy/AdvReac Type Severity Reaction Status Date / Time No Known Drug Allergies Allergy Unknown Verified 06/09/18 11:03 BEES Allergy Uncoded 06/09/18 11:03 Home Medications: Ambulatory Orders Levetiracetam 250 mg PO HS 08/15/12 Gabapentin [Neurontin -] 600 mg PO TID #0 capsule 08/22/12 Topiramate [Topamax] 200 mg PO BID 08/02/13 Metformin HCl [Glucophage] 1,000 mg PO BID 06/09/18 Famotidine [Pepcid -] 20 mg PO DAILY PRN #7 tablet 07/29/18 Levetiracetam 1,200 mg PO DAILY 07/29/18 Zonisamide [Zonegran] 100 mg PO BID 07/29/18 COPD: No Diabetes: Yes (PREDIABETIC) HTN: Yes Seizures: Yes (Epilepsy since age 24) - Surgical History Abdominal Surgery: Yes () - Psycho Social/Smoking Cessation Hx Smoking Status: Yes Smoking History: Never smoked Have you smoked in the past 12 months: No Number of Cigarettes Smoked Daily: 0 If you are a former smoker, when did you quit?: quit 3.5 years ago Cigars Per Day: 0 Information on smoking cessation initiated: No Hx Alcohol Use: No Drug/Substance Use Hx: No Substance Use Type: None Hx Substance Use Treatment: No Review of Systems - Review of Systems Constitutional: Yes: Chills, Fever, Malaise, Night Sweats HEENTM: Yes: Nose Congestion, Throat Pain, Difficulty Swallowing Respiratory: Yes: Cough *Physical Exam - Vital Signs Last Vital Signs Temp Pulse Resp BP Pulse Ox 98.2 F 76 18 127/82 98 05/18/19 12:46 05/18/19 12:46 05/18/19 12:46 05/18/19 12:46 05/18/19 12:46 - Physical Exam 05/18/19 14:32 GENERAL: The patient is awake, alert, and fully oriented, in no acute distress. HEAD: Normal with no signs of trauma. EYES: sclera anicteric, conjunctiva clear. ENT: Ears normal tympanic membranes normal oropharynx clear uvula midline NECK: Normal range of motion LUNGS: Breath sounds equal, clear to auscultation bilaterally. No wheezes, and no crackles. HEART: S1 and S2 without murmur, rub or gallop. ABDOMEN: Soft, nontender, normoactive bowel sounds. No guarding, no rebound. No masses. EXTREMITIES: Normal range of motion, no edema. No clubbing or cyanosis. No cords, erythema, or tenderness. NEUROLOGICAL: Cranial nerves II through XII grossly intact. PSYCH: Normal mood, normal affect. SKIN: Warm, Dry, normal turgor, no rashes or lesions noted. Medical Decision Making - Medical Decision Making 05/18/19 14:32 We will treat for influenza based on symptoms and length of sickness Discharge - Discharge Information Problems reviewed: Yes Clinical Impression/Diagnosis: URI (upper respiratory infection) Condition: Stable Disposition: HOME - Admission No - Follow up/Referral Referrals: Mendez Antonio MD [Primary Care Provider] - - Patient Discharge Instructions Patient Printed Discharge Instructions: DI for Viral Upper Respiratory Infection -- Adult Additional Instructions: Tylenol Motrin as directed for fever and body aches. Return to the emergency room for worsening symptoms and without fail follow-up with your primary care physician in 1 to 2 days for further evaluation and treatment options. Please take the Tamiflu as directed. - Post Discharge Activity
== END 2019-05-18 14:36 | disposition home or self-care (01) ==
LOC: JERFT 12:33
DX: J06.9 Acute upper respiratory infection, unspecified (principal); G40.909 Epilepsy, unspecified, not intractable, without status epilepticus; I10 Essential (primary) hypertension; E11.9 Type 2 diabetes mellitus without complications; Z79.84 Long term (current) use of oral hypoglycemic drugs
CPT/HCPCS: 99281-25

== ENCOUNTER 2020-04-09 11:31 | Emergency (ER) | payer OTHER ==
[2020-04-09 11:44] VITALS: TEMP 98.6; BMI 31.7
[2020-04-09] MEDS ORDERED: ASPIRIN 81 MG CHEWABLE TABLETS PO ONE (12:10)
[2020-04-09] MEDS ORDERED: ASPIRIN 81 MG CHEWABLE TABLETS ONE (12:21)
[2020-04-09 12:28] LABS: BASO % 0.6 % (0-2.0); EOS % 2.5 % (0-4.5); HEMATOCRIT 29.8 % (32.4-45.2); HEMOGLOBIN 9.3 GM/dL (10.7-15.3); MCH 22.3 pg (25.7-33.7); MCHC 31.4 g/dl (32.0-36.0); MEAN CELL VOLUME 71.2 fl (80-96); MEAN PLT VOLUME 7.5 fl (7.5-11.1); MONO % 5.4 % (3.8-10.2); NEUT % 51.5 % (42.8-82.8); PLATELET COUNT 323 K/MM3 (134-434); RBC 4.18 M/mm3 (3.60-5.2); RDW 19.4 % (11.6-15.6); WHITE BLOOD COUNT 7.6 K/mm3 (4.0-10.0)
[2020-04-09 12:54] LABS: CHLORIDE 112 mmol/L (98-107); POTASSIUM 3.9 mmol/L (3.5-5.1); SODIUM 143 mmol/L (136-145)
[2020-04-09 12:56] LABS: ALBUMIN 3.5 g/dl (3.4-5.0); ANION GAP 8 MMOL/L (8-16); BLOOD UREA NITROGEN 10.4 mg/dL (7-18); CALCIUM 8.3 mg/dL (8.5-10.1); CO2 24 mmol/L (21-32)
[2020-04-09 12:57] LABS: GLUCOSE,RANDOM 198 mg/dL (74-106)
[2020-04-09 13:00] LABS: CREATININE 0.9 mg/dL (0.55-1.3); SGOT/AST 90 U/L (15-37); SGPT/ALT 46 U/L (13-61)
[2020-04-09 13:01] LABS: BILIRUBIN,TOTAL 0.4 mg/dL (0.2-1); TOT PROT 6.6 g/dl (6.4-8.2)
[2020-04-09 13:02] LABS: ALK PHOS 89 U/L (45-117)
[2020-04-09 15:59] VITALS: BP 118/85; PULSE 70
[2020-04-09] MEDS ORDERED: KETOROLAC TROMETHAMINE 30 MG/1 ML VIAL IVPUSH ONE (16:12)
[2020-04-09] MEDS ORDERED: KETOROLAC TROMETHAMINE 30 MG/1 ML VIAL ONE (16:18)
[2020-04-09] MEDS ORDERED: FAMOTIDINE 20 MG TABLET PO ONE (17:10)
[2020-04-09] MEDS ORDERED: FAMOTIDINE 20 MG TABLET ONE (17:12)
== END 2020-04-09 17:21 | disposition home or self-care (01) ==
LOC: JER 11:31
PROC: 3E0333Z Introduction of Anti-inflammatory into Peripheral Vein, Percutaneous Approach (ICD-10-PCS; principal; 2020-04-09)
DX: R07.9 Chest pain, unspecified (principal)
CPT/HCPCS: 36415; 71046-TC-FY; 80053; 82550; 84484; 84703; 85025; 93005; 93010; 99285-25

== ENCOUNTER 2020-08-30 11:03 | Inpatient (IN) | payer OTHER ==
[2020-08-30 12:11] LABS: BASO % 0.7 % (0-2.0); EOS % 2.3 % (0-4.5); HEMATOCRIT 26.5 % (32.4-45.2); HEMOGLOBIN 9.2 GM/dL (10.7-15.3); LYMPH % 37.7 % (8-40); MCH 28.1 pg (25.7-33.7); MCHC 34.8 g/dl (32.0-36.0); MEAN CELL VOLUME 80.8 fl (80-96); MEAN PLT VOLUME 7.4 fl (7.5-11.1); MONO % 7.2 % (3.8-10.2); NEUT % 52.1 % (42.8-82.8); PLATELET COUNT 281 K/MM3 (134-434); RBC 3.27 M/mm3 (3.60-5.2); RDW 16.3 % (11.6-15.6); WHITE BLOOD COUNT 6.9 K/mm3 (4.0-10.0)
[2020-08-30 12:15] LABS: EPI CELLS >36 /uL (0-25.1); HYALINE CASTS 2 /uL (0-3.1); URINE APPEARANCE CLOUDY; URINE BACTERIA 2886 /uL (0-1359); URINE BILIRUBIN NEGATIVE (NEGATIVE); URINE COLOR YELLOW; URINE GLUCOSE (UA) 3+ (NEGATIVE); URINE KETONE NEGATIVE (NEGATIVE); URINE LEUK ESTERASE NEGATIVE (NEGATIVE); URINE NITRITE NEGATIVE (NEGATIVE); URINE PROTEIN 2+ (NEGATIVE); URINE RBC 18 /uL (0-23.9); URINE UROBILINOGEN 0.2 mg/dL (0.2-1.0)
[2020-08-30 12:33] LABS: VENOUS BASE EXCESS -0.1 mmol/L (-2-2); VENOUS O2 SATURATION 32.3 % (70-80); VENOUS PCO2 48.9 mmHg (38-52); VENOUS PH 7.342 (7.310-7.410)
[2020-08-30 12:35] LABS: CHLORIDE 109 mmol/L (98-107); SODIUM 142 mmol/L (136-145)
[2020-08-30 12:37] LABS: CALCIUM 8.9 mg/dL (8.5-10.1)
[2020-08-30 12:38] LABS: ALBUMIN 3.9 g/dl (3.4-5.0); ANION GAP 7 MMOL/L (8-16); BLOOD UREA NITROGEN 23.2 mg/dL (7-18); CO2 26 mmol/L (21-32); GLUCOSE,RANDOM 148 mg/dL (74-106)
[2020-08-30 12:41] LABS: CHOLESTEROL 120 mg/dL (50-200); CREATININE 2.7 mg/dL (0.55-1.3); SGOT/AST 49 U/L (15-37); SGPT/ALT 76 U/L (13-61)
[2020-08-30 12:42] LABS: BILIRUBIN,TOTAL 0.6 mg/dL (0.2-1); LDL CHOLESTEROL (ONLY SJRH) 54 mg/dL (5-100); TOT PROT 7.2 g/dl (6.4-8.2)
[2020-08-30 12:43] LABS: ALK PHOS 80 U/L (45-117); HDL CHOLESTEROL 31 mg/dL (40-60)
[2020-08-30 12:55] LABS: LACTIC ACID 2.4 mmol/L (0.4-2.0)
[2020-08-30 12:55] LABS: URINE WBC 86.9 /uL (0-25.8)
[2020-08-30] MEDS ORDERED: SODIUM CHLORIDE 0.45%/POT 20 MEQ/1,000 ML INFUS.BAG IV SCH (14:15)
[2020-08-30] MEDS ORDERED: CEFTRIAXONE 1 GM in DEXTROSE 5%-WATER - 50 ML IVPB SCH (14:30)
[2020-08-30] MEDS ORDERED: CEFTRIAXONE 1 GM/50 ML BAG ONE (14:38)
[2020-08-30] MEDS ORDERED: ACETAMINOPHEN 325 MG TABLET (FP) ONE (14:38)
[2020-08-30] MEDS: ACETAMINOPHEN 325 MG TABLET (FP) PO PRN (14:45)
[2020-08-30] MEDS: LACTATED RINGERS SOLUTION 1,000 ML/1,000 ML INFUS.BAG IV SCH (14:45)
[2020-08-30] MEDS: INSULIN SLIDING SCALE (NOVOLOG) 1 VIAL SQ SCH ×2 (17:11→21:53)
[2020-08-30 20:18] VITALS: BMI 34.7
[2020-08-30] MEDS: MECLIZINE HCL 25 MG TABLET (FP) PO SCH (21:51)
[2020-08-30] MEDS: HEPARIN NA (PORCINE) 5,000 UNITS/ML 1ML VIAL SQ SCH (21:51)
[2020-08-30] MEDS ORDERED: levETIRAcetam 250 MG TABLET PO SCH (22:00)
[2020-08-30] MEDS: GABAPENTIN 300 MG CAPSULE PO SCH (22:27)
[2020-08-30] MEDS: levETIRAcetam 500 MG TABLET (FP) PO SCH (22:27)
[2020-08-31] MEDS: LACTATED RINGERS SOLUTION 1,000 ML/1,000 ML INFUS.BAG IV SCH ×3 (00:10→15:44)
[2020-08-31] MEDS: INSULIN SLIDING SCALE (NOVOLOG) 1 VIAL SQ SCH ×4 (06:10→21:26)
[2020-08-31] MEDS: GABAPENTIN 300 MG CAPSULE PO SCH ×3 (06:10→21:17)
[2020-08-31 08:57] LABS: BASO % 0.6 % (0-2.0); EOS % 2.1 % (0-4.5); HEMATOCRIT 24.8 % (32.4-45.2); HEMOGLOBIN 8.7 GM/dL (10.7-15.3); LYMPH % 43.5 % (8-40); MCH 28.4 pg (25.7-33.7); MCHC 35.2 g/dl (32.0-36.0); MEAN CELL VOLUME 80.5 fl (80-96); MEAN PLT VOLUME 7.5 fl (7.5-11.1); MONO % 5.7 % (3.8-10.2); NEUT % 48.1 % (42.8-82.8); PLATELET COUNT 287 K/MM3 (134-434); RBC 3.08 M/mm3 (3.60-5.2); RDW 16.5 % (11.6-15.6); WHITE BLOOD COUNT 7.6 K/mm3 (4.0-10.0)
[2020-08-31] MEDS: levETIRAcetam 500 MG TABLET (FP) PO SCH ×2 (09:37→21:17)
[2020-08-31] MEDS: MECLIZINE HCL 25 MG TABLET (FP) PO SCH ×2 (09:38→21:17)
[2020-08-31] MEDS: HEPARIN NA (PORCINE) 5,000 UNITS/ML 1ML VIAL SQ SCH ×2 (09:47→21:18)
[2020-08-31 09:50] LABS: BILIRUBIN,TOTAL 0.4 mg/dL (0.2-1)
[2020-08-31 09:52] LABS: BLOOD UREA NITROGEN 22.4 mg/dL (7-18)
[2020-08-31 09:55] LABS: ALBUMIN 3.8 g/dl (3.4-5.0)
[2020-08-31 09:58] LABS: CREATININE 2.4 mg/dL (0.55-1.3); PHOSPHOROUS 4.4 mg/dL (2.5-4.9)
[2020-08-31] MEDS ORDERED: PATIENT'S OWN MEDICATION (NON-FORMULARY) (Levetiracetam [Levetiracetam] 1,000 MG Tablet) PO SCH (10:00)
[2020-08-31 10:05] LABS: CALCIUM 10.1 mg/dL (8.5-10.1); MAGNESIUM 2.1 mg/dL (1.8-2.4); TOT PROT 6.8 g/dl (6.4-8.2)
[2020-08-31] MEDS ORDERED: PT OWN MED DRAWER 7, Y5N ONE ×2 (10:54→12:54)
[2020-08-31] MEDS: ZONISAMIDE 100 MG CAPSULE PO SCH (10:57)
[2020-08-31] MEDS ORDERED: traMADol HCL 50 MG TABLET PO ONE (18:08)
[2020-08-31 19:23] LABS: EPI CELLS 3 /uL (0-25.1); HYALINE CASTS 0 /uL (0-3.1); URINE APPEARANCE CLEAR; URINE BACTERIA 233 /uL (0-1359); URINE BILIRUBIN NEGATIVE (NEGATIVE); URINE COLOR YELLOW; URINE GLUCOSE (UA) 3+ (NEGATIVE); URINE KETONE NEGATIVE (NEGATIVE); URINE LEUK ESTERASE NEGATIVE (NEGATIVE); URINE NITRITE NEGATIVE (NEGATIVE); URINE PROTEIN 1+ (NEGATIVE); URINE RBC 4 /uL (0-23.9); URINE UROBILINOGEN 0.2 mg/dL (0.2-1.0); URINE WBC 2 /uL (0-25.8)
[2020-08-31] MEDS ORDERED: INSULIN (NOVOLOG) ASPART 100 UNITS/ML 10ML VIAL ONE (21:20)
[2020-09-01] MEDS: GABAPENTIN 300 MG CAPSULE PO SCH ×3 (05:21→21:56)
[2020-09-01] MEDS: INSULIN SLIDING SCALE (NOVOLOG) 1 VIAL SQ SCH ×5 (06:29→22:16)
[2020-09-01] MEDS: LACTATED RINGERS SOLUTION 1,000 ML/1,000 ML INFUS.BAG IV SCH ×2 (08:05)
[2020-09-01 08:28] LABS: CHLORIDE 106 mmol/L (98-107); SODIUM 142 mmol/L (136-145)
[2020-09-01 08:29] LABS: ALBUMIN 3.3 g/dl (3.4-5.0); BLOOD UREA NITROGEN 19.9 mg/dL (7-18); CALCIUM 9.4 mg/dL (8.5-10.1); CO2 30 mmol/L (21-32)
[2020-09-01 08:30] LABS: GLUCOSE,RANDOM 138 mg/dL (74-106)
[2020-09-01 08:32] LABS: SGOT/AST 15 U/L (15-37); SGPT/ALT 41 U/L (13-61)
[2020-09-01 08:33] LABS: CREATININE 2.2 mg/dL (0.55-1.3)
[2020-09-01 08:34] LABS: BILIRUBIN,TOTAL 0.5 mg/dL (0.2-1)
[2020-09-01 08:35] LABS: ALK PHOS 64 U/L (45-117)
[2020-09-01 09:05] LABS: ANION GAP 7 MMOL/L (8-16)
[2020-09-01] MEDS: levETIRAcetam 500 MG TABLET (FP) PO SCH ×2 (09:06→21:56)
[2020-09-01] MEDS: MECLIZINE HCL 25 MG TABLET (FP) PO SCH ×2 (09:06→21:56)
[2020-09-01] MEDS: HEPARIN NA (PORCINE) 5,000 UNITS/ML 1ML VIAL SQ SCH ×2 (09:10→21:56)
[2020-09-01] MEDS ORDERED: SODIUM CHLORIDE 0.45%/POT 20 MEQ/1,000 ML INFUS.BAG IV SCH (09:15)
[2020-09-01] MEDS: ZONISAMIDE 100 MG CAPSULE PO SCH (09:16)
[2020-09-01] MEDS ORDERED: traMADol HCL 50 MG TABLET PO PRN (09:17)
[2020-09-01] MEDS: LORATADINE 10 MG TABLET PO SCH (09:54)
[2020-09-01] MEDS: KCL 10 MEQ IVPB 10 MEQ/100 ML INFUS.BAG IVPB SCH ×2 (09:55→12:31)
[2020-09-01 10:53] LABS: BASO % 0.4 % (0-2.0); EOS % 3.1 % (0-4.5); HEMATOCRIT 24.3 % (32.4-45.2); HEMOGLOBIN 8.1 GM/dL (10.7-15.3); LYMPH % 45.4 % (8-40); MCH 27.3 pg (25.7-33.7); MCHC 33.2 g/dl (32.0-36.0); MONO % 5.6 % (3.8-10.2); NEUT % 45.5 % (42.8-82.8); PLATELET COUNT 262 K/MM3 (134-434); RBC 2.96 M/mm3 (3.60-5.2); RDW 15.8 % (11.6-15.6); WHITE BLOOD COUNT 7.8 K/mm3 (4.0-10.0)
[2020-09-01] MEDS ORDERED: POTASSIUM CHLORIDE TABS 10 MEQ TABLET.ER (FP) PO SCH (11:30)
[2020-09-01] MEDS ORDERED: POTASSIUM CHLORIDE TABS 20 MEQ TABLET.ER (FP) PO SCH (11:36)
[2020-09-01] MEDS: SODIUM CHLORIDE 0.45%/POT 20 MEQ/1,000 ML INFUS.BAG IV SCH ×2 (12:42→22:11)
[2020-09-01] MEDS ORDERED: POTASSIUM CHLORIDE TABS 20 MEQ TABLET.ER (FP) PO ONE ×2 (13:00→18:20)
[2020-09-01 17:49] LABS: CHLORIDE 104 mmol/L (98-107); SODIUM 142 mmol/L (136-145)
[2020-09-01 17:50] LABS: CALCIUM 8.8 mg/dL (8.5-10.1)
[2020-09-01 17:51] LABS: BLOOD UREA NITROGEN 18.2 mg/dL (7-18); CO2 31 mmol/L (21-32); GLUCOSE,RANDOM 157 mg/dL (74-106)
[2020-09-01 17:54] LABS: CREATININE 2.2 mg/dL (0.55-1.3)
[2020-09-01 17:59] LABS: ANION GAP 7 MMOL/L (8-16)
[2020-09-02] MEDS: GABAPENTIN 300 MG CAPSULE PO SCH ×3 (05:20→21:10)
[2020-09-02] MEDS: INSULIN SLIDING SCALE (NOVOLOG) 1 VIAL SQ SCH ×4 (06:21→21:13)
[2020-09-02 08:32] LABS: BASO % 0.5 % (0-2.0); EOS % 3.8 % (0-4.5); HEMATOCRIT 23.5 % (32.4-45.2); HEMOGLOBIN 8.1 GM/dL (10.7-15.3); LYMPH % 46.4 % (8-40); MCH 28.1 pg (25.7-33.7); MCHC 34.5 g/dl (32.0-36.0); MEAN CELL VOLUME 81.5 fl (80-96); MEAN PLT VOLUME 7.8 fl (7.5-11.1); MONO % 5.6 % (3.8-10.2); NEUT % 43.7 % (42.8-82.8); PLATELET COUNT 263 K/MM3 (134-434); RBC 2.88 M/mm3 (3.60-5.2); RDW 15.4 % (11.6-15.6); WHITE BLOOD COUNT 7.3 K/mm3 (4.0-10.0)
[2020-09-02 09:10] LABS: CALCIUM 8.6 mg/dL (8.5-10.1)
[2020-09-02 09:11] LABS: ALBUMIN 3.5 g/dl (3.4-5.0); BLOOD UREA NITROGEN 16.7 mg/dL (7-18); MAGNESIUM 1.5 mg/dL (1.8-2.4)
[2020-09-02 09:14] LABS: PHOSPHOROUS 4.5 mg/dL (2.5-4.9)
[2020-09-02 09:15] LABS: BILIRUBIN,TOTAL 0.4 mg/dL (0.2-1); TOT PROT 6.1 g/dl (6.4-8.2)
[2020-09-02] MEDS ORDERED: PT OWN MED DRAWER 7, Y5N ONE (09:26)
[2020-09-02] MEDS ORDERED: POTASSIUM CHLORIDE TABS 20 MEQ TABLET.ER (FP) PO ONE (09:45)
[2020-09-02] MEDS ORDERED: IRON SUCROSE INJECTION 200 MG in SODIUM CHLORIDE 90 ML IVPB ONE (10:45)
[2020-09-02] MEDS: MECLIZINE HCL 25 MG TABLET (FP) PO SCH ×2 (11:39→21:11)
[2020-09-02] MEDS: levETIRAcetam 500 MG TABLET (FP) PO SCH ×2 (11:40→21:10)
[2020-09-02] MEDS: HEPARIN NA (PORCINE) 5,000 UNITS/ML 1ML VIAL SQ SCH ×2 (11:46→21:12)
[2020-09-02] MEDS: LORATADINE 10 MG TABLET PO SCH (11:46)
[2020-09-02] MEDS: ZONISAMIDE 100 MG CAPSULE PO SCH (11:47)
[2020-09-02] MEDS: KCL 10 MEQ IVPB 10 MEQ/100 ML INFUS.BAG IVPB SCH ×2 (11:51→14:19)
[2020-09-02] MEDS ORDERED: ONDANSETRON 4 MG/2 ML VIAL IVPUSH PRN (16:37)
[2020-09-02 18:10] LABS: ATYPICAL pANCA <1:20 titer (Neg:<1:20); C-ANCA <1:20 titer (Neg:<1:20)
[2020-09-02] MEDS: SODIUM CHLORIDE 0.45%/POT 20 MEQ/1,000 ML INFUS.BAG IV SCH (20:27)
[2020-09-02] MEDS: ACETAMINOPHEN 325 MG TABLET (FP) PO PRN (21:09)
[2020-09-03] MEDS: GABAPENTIN 300 MG CAPSULE PO SCH ×2 (05:32→15:18)
[2020-09-03] MEDS: ACETAMINOPHEN 325 MG TABLET (FP) PO PRN (05:44)
[2020-09-03] MEDS: INSULIN SLIDING SCALE (NOVOLOG) 1 VIAL SQ SCH ×2 (06:34→12:09)
[2020-09-03 09:19] LABS: BASO % 0.4 % (0-2.0); EOS % 3.2 % (0-4.5); HEMATOCRIT 24.2 % (32.4-45.2); HEMOGLOBIN 8.1 GM/dL (10.7-15.3); LYMPH % 44.5 % (8-40); MCH 27.9 pg (25.7-33.7); MCHC 33.7 g/dl (32.0-36.0); MEAN CELL VOLUME 82.9 fl (80-96); MEAN PLT VOLUME 7.6 fl (7.5-11.1); MONO % 5.5 % (3.8-10.2); NEUT % 46.4 % (42.8-82.8); PLATELET COUNT 254 K/MM3 (134-434); RBC 2.92 M/mm3 (3.60-5.2); RDW 15.9 % (11.6-15.6); WHITE BLOOD COUNT 6.7 K/mm3 (4.0-10.0)
[2020-09-03] MEDS ORDERED: INSULIN (NOVOLOG) ASPART 100 UNITS/ML 10ML VIAL ONE (09:48)
[2020-09-03] MEDS ORDERED: PT OWN MED DRAWER 7, Y5N ONE (09:49)
[2020-09-03 09:58] LABS: ALBUMIN 3.3 g/dl (3.4-5.0); BLOOD UREA NITROGEN 13.4 mg/dL (7-18); CALCIUM 8.4 mg/dL (8.5-10.1)
[2020-09-03 10:02] LABS: CREATININE 1.8 mg/dL (0.55-1.3)
[2020-09-03 10:03] LABS: BILIRUBIN,TOTAL 0.5 mg/dL (0.2-1); TOT PROT 6.1 g/dl (6.4-8.2)
[2020-09-03] MEDS: levETIRAcetam 500 MG TABLET (FP) PO SCH (10:03)
[2020-09-03] MEDS: HEPARIN NA (PORCINE) 5,000 UNITS/ML 1ML VIAL SQ SCH (10:03)
[2020-09-03] MEDS: LORATADINE 10 MG TABLET PO SCH (10:03)
[2020-09-03] MEDS: MECLIZINE HCL 25 MG TABLET (FP) PO SCH (10:03)
[2020-09-03] MEDS: ZONISAMIDE 100 MG CAPSULE PO SCH (10:08)
[2020-09-03] MEDS ORDERED: POTASSIUM CHLORIDE TABS 20 MEQ TABLET.ER (FP) PO ONE (12:18)
[2020-09-03 15:00] VITALS: BP 115/79; PULSE 83; TEMP 98.3
[2020-09-03] MEDS: SODIUM CHLORIDE 0.45%/POT 20 MEQ/1,000 ML INFUS.BAG IV SCH (15:18)
== END 2020-09-03 15:08 | disposition home health service (06) | DRG 469 ==
LOC: JER 11:03 → JERBED 12:52 → J5S 18:54
PROVIDERS: ADMIT Family Medicine; ATTEND Family Medicine
DX: N17.0 Acute kidney failure with tubular necrosis (principal); R19.7 Diarrhea, unspecified; G40.909 Epilepsy, unspecified, not intractable, without status epilepticus; M54.9 Dorsalgia, unspecified; T44.5X5A Adverse effect of predominantly beta-adrenoreceptor agonists, initial encounter; T39.395A Adverse effect of other nonsteroidal anti-inflammatory drugs [NSAID], initial encounter; I10 Essential (primary) hypertension; D64.9 Anemia, unspecified; N30.91 Cystitis, unspecified with hematuria; E11.21 Type 2 diabetes mellitus with diabetic nephropathy; M62.82 Rhabdomyolysis; E87.2 Acidosis
CPT/HCPCS: 36415; 76775-TC; 76856-TC; 80048; 80053; 80177; 81003; 82436; 82465; 82550; 82553; 82570; 82728; 82803; 82962; 83036; 83520; 83540; 83550; 83605; 83718; 83721; 83735; 84100; 84133; 84156; 84300; 84443; 84484; 84540; 84703; 85025; 85651; 86140; 86256; 87086; 87205; 93005; 93010; 93306-TC; 99285-25; C9803; J1644; J1756; J3480; U0003; U0005

== ENCOUNTER 2020-09-16 09:20 | Day surgery (SDC) | payer OTHER ==
[2020-09-16] MEDS ORDERED: IRON SUCROSE INJECTION 300 MG in SODIUM CHLORIDE 250 ML IVPB ONE (10:00)
[2020-09-16 10:20] VITALS: BP 123/94; PULSE 69; TEMP 98.3
== END 2020-09-16 11:25 | disposition home or self-care (01) ==
LOC: FINFUSION 09:20 → FM/S 09:24 → FINFUSION 11:25
PROVIDERS: ATTEND Family Medicine
PROC: 3E033GC Introduction of Other Therapeutic Substance into Peripheral Vein, Percutaneous Approach (ICD-10-PCS; principal; 2020-09-16)
DX: D50.9 Iron deficiency anemia, unspecified (principal)
CPT/HCPCS: 96365; J1756

== ENCOUNTER 2020-11-12 19:46 | Emergency (ER) | payer OTHER ==
[2020-11-12 19:55] VITALS: BMI 30.9
[2020-11-12] MEDS ORDERED: ACETAMINOPHEN 1000 MG/100 ML VIAL (NON FORMULARY) IVPB ONE (20:48)
[2020-11-12] MEDS ORDERED: SODIUM CHLORIDE 1,000 ML IV STA ×2 (20:48→22:55)
[2020-11-12] MEDS ORDERED: ONDANSETRON 4 MG/2 ML VIAL IVPUSH ONE (20:48)
[2020-11-12] MEDS ORDERED: ACETAMINOPHEN INJECTION 100 ML IVPB ONE (21:08)
[2020-11-12] MEDS ORDERED: ONDANSETRON 4 MG/2 ML VIAL ONE (21:08)
[2020-11-12 21:35] LABS: BASO % 0.1 % (0-2.0); EOS % 0.6 % (0-4.5); HEMATOCRIT 38.1 % (32.4-45.2); HEMOGLOBIN 12.3 GM/dL (10.7-15.3); LYMPH % 6.3 % (8-40); MCH 24.2 pg (25.7-33.7); MCHC 32.4 g/dl (32.0-36.0); MEAN CELL VOLUME 74.8 fl (80-96); MEAN PLT VOLUME 7.7 fl (7.5-11.1); MONO % 2.5 % (3.8-10.2); NEUT % 90.5 % (42.8-82.8); PLATELET COUNT 307 10^3/uL (134-434); RBC 5.09 M/mm3 (3.60-5.2); RDW 16.1 % (11.6-15.6); WHITE BLOOD COUNT 12.1 K/mm3 (4.0-10.0)
[2020-11-12 21:57] LABS: CALCIUM 9.1 mg/dL (8.5-10.1)
[2020-11-12 21:58] LABS: ALBUMIN 4.2 g/dl (3.4-5.0); BLOOD UREA NITROGEN 16.2 mg/dL (7-18)
[2020-11-12 22:01] LABS: CREATININE 1.1 mg/dL (0.55-1.3)
[2020-11-12 22:02] LABS: TOT PROT 7.5 g/dl (6.4-8.2)
[2020-11-12 22:03] LABS: BILIRUBIN,TOTAL 1.1 mg/dL (0.2-1)
[2020-11-12 22:36] LABS: EPI CELLS 35 /uL (0-25.1); HCG,QUALITATIVE URINE Negative; HYALINE CASTS 5 /uL (0-3.1); URINE APPEARANCE TURBID; URINE BACTERIA 81 /uL (0-1359); URINE BILIRUBIN NEGATIVE (NEGATIVE); URINE COLOR YELLOW; URINE GLUCOSE (UA) 1+ (NEGATIVE); URINE KETONE 2+ (NEGATIVE); URINE LEUK ESTERASE NEGATIVE (NEGATIVE); URINE NITRITE NEGATIVE (NEGATIVE); URINE PROTEIN 2+ (NEGATIVE); URINE RBC 16 /uL (0-23.9); URINE WBC 20 /uL (0-25.8)
[2020-11-13] MEDS ORDERED: METOCLOPRAMIDE HCL INJECTION 10 MG/2 ML VIAL IVPB ONE (01:15)
[2020-11-13] MEDS ORDERED: METOCLOPRAMIDE HCL INJECTION 10 MG/2 ML VIAL ONE (01:22)
[2020-11-13 02:14] VITALS: BP 122/71; PULSE 97; TEMP 98.9
[2020-11-13] MEDS ORDERED: AMOX TR/POT CLAV 875MG/125MG TABLETS (FP) PO ONE (03:08)
[2020-11-13] MEDS ORDERED: AMOX TR/POT CLAV 875MG/125MG TABLETS (FP) ONE (03:11)
[2020-11-13 07:35] LABS: URINE CRYSTALS MANY /hpf
== END 2020-11-13 04:00 | disposition home or self-care (01) ==
LOC: JER 19:46
PROC: 3E033NZ Introduction of Analgesics, Hypnotics, Sedatives into Peripheral Vein, Percutaneous Approach (ICD-10-PCS; principal; 2020-11-12)
PROC: 3E033GC Introduction of Other Therapeutic Substance into Peripheral Vein, Percutaneous Approach (ICD-10-PCS; 2020-11-12)
PROC: 3E033GC Introduction of Other Therapeutic Substance into Peripheral Vein, Percutaneous Approach (ICD-10-PCS; 2020-11-12)
PROC: 3E033GC Introduction of Other Therapeutic Substance into Peripheral Vein, Percutaneous Approach (ICD-10-PCS; 2020-11-12)
PROC: 3E0337Z Introduction of Electrolytic and Water Balance Substance into Peripheral Vein, Percutaneous Approach (ICD-10-PCS; 2020-11-12)
DX: R19.7 Diarrhea, unspecified (principal); R11.2 Nausea with vomiting, unspecified
CPT/HCPCS: 36415; 74176-TC; 80053; 81003; 82962; 83690; 84703; 85025; 87077; 87086; 93005; 93010; 99285-25; J0131

== ENCOUNTER 2021-04-04 11:01 | Emergency (ER) | payer OTHER ==
[2021-04-04 11:45] VITALS: BP 127/80; PULSE 78; TEMP 98.6; BMI 30.5
[2021-04-04] MEDS ORDERED: morphine CARPU-JECT 2 MG/1 ML DISP.SYRIN IVPUSH ONE (12:24)
[2021-04-04] MEDS ORDERED: ONDANSETRON 4 MG/2 ML VIAL IVPUSH ONE (12:25)
[2021-04-04] MEDS ORDERED: ONDANSETRON 4 MG/2 ML VIAL ONE (12:40)
[2021-04-04 13:40] LABS: BASO % 0.3 % (0-2.0); EOS % 1.3 % (0-4.5); HEMATOCRIT 35.6 % (32.4-45.2); HEMOGLOBIN 11.3 GM/dL (10.7-15.3); LYMPH % 32.4 % (8-40); MCHC 31.8 g/dl (32.0-36.0); MEAN CELL VOLUME 72.3 fl (80-96); MEAN PLT VOLUME 7.4 fl (7.5-11.1); PLATELET COUNT 311 10^3/uL (134-434); RBC 4.93 M/mm3 (3.60-5.2); RDW 17.4 % (11.6-15.6); WHITE BLOOD COUNT 11.5 K/mm3 (4.0-10.0)
[2021-04-04 14:03] LABS: ALBUMIN 3.6 g/dl (3.4-5.0); BLOOD UREA NITROGEN 7.7 mg/dL (7-18); CALCIUM 8.9 mg/dL (8.5-10.1)
[2021-04-04 14:06] LABS: EPI CELLS 6 /uL (0-25.1); HYALINE CASTS 1 /uL (0-3.1); PH,URINE 6.5 (5.0-8.0); URINE APPEARANCE CLOUDY; URINE BACTERIA >9,000 /uL (0-1359); URINE BILIRUBIN NEGATIVE (NEGATIVE); URINE COLOR YELLOW; URINE GLUCOSE (UA) 2+ (NEGATIVE); URINE KETONE TRACE (NEGATIVE); URINE LEUK ESTERASE 1+ (NEGATIVE); URINE NITRITE NEGATIVE (NEGATIVE); URINE PROTEIN 1+ (NEGATIVE); URINE UROBILINOGEN 0.2 mg/dL (0.2-1.0); URINE WBC 2126 /uL (0-25.8)
[2021-04-04 14:07] LABS: CREATININE 0.9 mg/dL (0.55-1.3)
[2021-04-04 14:08] LABS: BILIRUBIN,TOTAL 0.5 mg/dL (0.2-1)
[2021-04-04] MEDS ORDERED: CEFTRIAXONE 1 GM in DEXTROSE 5%-WATER - 50 ML IVPB ONE (14:47)
[2021-04-04] MEDS ORDERED: SODIUM CHLORIDE 0.9% 500 ML INFUS.BAG IV ONE (14:48)
[2021-04-04] MEDS ORDERED: CEFTRIAXONE 1 GM/50 ML BAG ONE (15:00)
[2021-04-04] MEDS ORDERED: KETOROLAC TROMETHAMINE 30 MG/1 ML VIAL IVPUSH ONE (15:47)
[2021-04-04] MEDS ORDERED: KETOROLAC TROMETHAMINE 30 MG/1 ML VIAL ONE (15:58)
[2021-04-04 16:02] LABS: URINE RBC 2439.6 /uL (0-23.9)
[2021-04-04 16:08] LABS: URINE CRYSTALS FEW /hpf
== END 2021-04-04 17:18 | disposition home or self-care (01) ==
LOC: JER 11:01 → JERFT 11:01
PROC: 3E033GC Introduction of Other Therapeutic Substance into Peripheral Vein, Percutaneous Approach (ICD-10-PCS; principal; 2021-04-04)
DX: N30.01 Acute cystitis with hematuria (principal)
CPT/HCPCS: 36415; 76775-TC; 80053; 81003; 85025; 87086; 87186; 99284-25

== ENCOUNTER 2021-06-21 10:23 | Observation (INO) | payer OTHER ==
[2021-06-21 10:34] VITALS: BMI 31.6
[2021-06-21] MEDS ORDERED: MECLIZINE HCL 25 MG TABLET (FP) PO ONE (13:08)
[2021-06-21] MEDS ORDERED: METOCLOPRAMIDE HCL INJECTION 10 MG/2 ML VIAL IVPB ONE (13:08)
[2021-06-21] MEDS ORDERED: LIDOCAINE 5% TOPICAL PATCH TP ONE (13:09)
[2021-06-21 13:10] LABS: BASO % 0.4 % (0-2.0); EOS % 1.7 % (0-4.5); HEMATOCRIT 37.8 % (32.4-45.2); HEMOGLOBIN 12.6 GM/dL (10.7-15.3); LYMPH % 33.8 % (8-40); MCH 24.1 pg (25.7-33.7); MCHC 33.3 g/dl (32.0-36.0); MEAN CELL VOLUME 72.4 fl (80-96); MEAN PLT VOLUME 7.6 fl (7.5-11.1); MONO % 5.1 % (3.8-10.2); PLATELET COUNT 289 10^3/uL (134-434); RBC 5.22 M/mm3 (3.60-5.2); RDW 17.8 % (11.6-15.6); WHITE BLOOD COUNT 10.9 K/mm3 (4.0-10.0)
[2021-06-21 13:21] LABS: INR 1.02 (0.83-1.09); PROTHROMBIN TIME (PATIENT) 11.7 SEC (9.7-13.0)
[2021-06-21] MEDS ORDERED: METOCLOPRAMIDE HCL INJECTION 10 MG/2 ML VIAL ONE (13:21)
[2021-06-21] MEDS ORDERED: MECLIZINE HCL 25 MG TABLET (FP) ONE (13:21)
[2021-06-21] MEDS ORDERED: LIDOCAINE 5% TOPICAL PATCH ONE (13:22)
[2021-06-21 13:30] LABS: CALCIUM 10.1 mg/dL (8.5-10.1)
[2021-06-21] MEDS ORDERED: SODIUM CHLORIDE 0.9% 500 ML INFUS.BAG IV ONE (13:32)
[2021-06-21 13:34] LABS: CREATININE 1.9 mg/dL (0.55-1.3)
[2021-06-21 13:36] LABS: BILIRUBIN,TOTAL 0.7 mg/dL (0.2-1); TOT PROT 7.3 g/dl (6.4-8.2)
[2021-06-21 13:48] LABS: URINE APPEARANCE CLEAR; URINE BILIRUBIN NEGATIVE (NEGATIVE); URINE COLOR YELLOW; URINE GLUCOSE (UA) 3+ (NEGATIVE); URINE KETONE NEGATIVE (NEGATIVE); URINE LEUK ESTERASE NEGATIVE (NEGATIVE); URINE NITRITE NEGATIVE (NEGATIVE); URINE PROTEIN TRACE (NEGATIVE); URINE UROBILINOGEN 0.2 mg/dL (0.2-1.0)
[2021-06-21] MEDS ORDERED: LACTATED RINGERS SOLUTION 1000 ML INFUS.BAG IV ONE (13:51)
[2021-06-21 15:10] LABS: MAGNESIUM 2.5 mg/dL (1.8-2.4)
[2021-06-21] MEDS: SODIUM CHLORIDE 0.45%/POT 20 MEQ/1,000 ML INFUS.BAG IV SCH (18:00)
[2021-06-21] MEDS ORDERED: METOCLOPRAMIDE HCL INJECTION 10 MG/2 ML VIAL IVPUSH PRN (18:00)
[2021-06-21] MEDS ORDERED: TIZANIDINE HCL 2 MG TABLET PO SCH (22:00)
[2021-06-21] MEDS ORDERED: MECLIZINE HCL 25 MG TABLET (FP) PO SCH (22:00)
[2021-06-21] MEDS ORDERED: LIDOCAINE PATCH REMOVAL MC ONE (22:00)
[2021-06-21] MEDS ORDERED: levETIRAcetam 250 MG TABLET PO SCH (22:00)
[2021-06-21] MEDS: INSULIN SLIDING SCALE (NOVOLOG) 1 VIAL SQ SCH (22:06)
[2021-06-21] MEDS: GABAPENTIN 400 MG CAPSULE PO SCH (22:07)
[2021-06-21] MEDS: HEPARIN NA (PORCINE) 5,000 UNITS/ML 1ML VIAL SQ SCH (22:08)
[2021-06-22] MEDS ORDERED: levETIRAcetam 250 MG TABLET PO SCH ×2 (00:43→07:00)
[2021-06-22] MEDS ORDERED: ZONISAMIDE 100 MG CAPSULE PO SCH ×2 (00:45→10:00)
[2021-06-22] MEDS: ZONISAMIDE 100 MG CAPSULE PO SCH ×3 (02:54→09:20)
[2021-06-22] MEDS: SODIUM CHLORIDE 0.45%/POT 20 MEQ/1,000 ML INFUS.BAG IV SCH (04:22)
[2021-06-22] MEDS: GABAPENTIN 400 MG CAPSULE PO SCH (06:41)
[2021-06-22] MEDS: INSULIN SLIDING SCALE (NOVOLOG) 1 VIAL SQ SCH ×2 (06:43→12:40)
[2021-06-22] MEDS ORDERED: PATIENT'S OWN MEDICATION (NON-FORMULARY) (Levetiracetam [Levetiracetam] 1,000 MG Tablet) PO SCH (07:00)
[2021-06-22 07:08] VITALS: BP 93/60; PULSE 75; TEMP 97.7
[2021-06-22] MEDS: HEPARIN NA (PORCINE) 5,000 UNITS/ML 1ML VIAL SQ SCH (09:10)
[2021-06-22] MEDS ORDERED: INSULIN (LEVEMIR) 100 UNITS/ML UNITS SQ SCH (10:00)
[2021-06-22] MEDS ORDERED: TOPIRAMATE 200 MG TABLET PO SCH (10:00)
[2021-06-22] MEDS ORDERED: FLU VACC QS2021-22(6MOS UP)/PF 60 MCG/0.5 ML SYRINGE IM ONE (10:00)
[2021-06-22 10:45] LABS: BASO % 0.6 % (0-2.0); EOS % 3.1 % (0-4.5); HEMATOCRIT 34.9 % (32.4-45.2); HEMOGLOBIN 11.4 GM/dL (10.7-15.3); MCH 23.8 pg (25.7-33.7); MCHC 32.8 g/dl (32.0-36.0); MEAN CELL VOLUME 72.5 fl (80-96); MONO % 5.7 % (3.8-10.2); NEUT % 46.6 % (42.8-82.8); PLATELET COUNT 275 10^3/uL (134-434); RBC 4.81 M/mm3 (3.60-5.2); RDW 17.5 % (11.6-15.6); WHITE BLOOD COUNT 10.3 K/mm3 (4.0-10.0)
[2021-06-22 11:07] LABS: CALCIUM 8.7 mg/dL (8.5-10.1)
[2021-06-22 11:08] LABS: ALBUMIN 3.6 g/dl (3.4-5.0); BLOOD UREA NITROGEN 14.8 mg/dL (7-18)
[2021-06-22 11:09] LABS: MAGNESIUM 1.9 mg/dL (1.8-2.4)
[2021-06-22 11:12] LABS: BILIRUBIN,TOTAL 0.6 mg/dL (0.2-1); CREATININE 1.2 mg/dL (0.55-1.3); TOT PROT 6.5 g/dl (6.4-8.2)
== END 2021-06-22 14:47 | disposition home or self-care (01) ==
LOC: JER 10:23 → JERBED 14:40 → UNDOADMOB 14:40 → INTOOBSV 16:28 → JERBED 16:28 → OBSVTOIN 16:28 → UNDOADMOB 16:28 → JERBED 19:34 → J6S 19:34 → JERBED 06-22 09:02
PROVIDERS: ADMIT Family Medicine; ATTEND Family Medicine
PROC: 3E023GC Introduction of Other Therapeutic Substance into Muscle, Percutaneous Approach (ICD-10-PCS; principal; 2021-06-22)
PROC: 3E0234Z Introduction of Serum, Toxoid and Vaccine into Muscle, Percutaneous Approach (ICD-10-PCS; 2021-06-22)
PROC: 3E013VG Introduction of Insulin into Subcutaneous Tissue, Percutaneous Approach (ICD-10-PCS; 2021-06-22)
PROC: 3E033GC Introduction of Other Therapeutic Substance into Peripheral Vein, Percutaneous Approach (ICD-10-PCS; 2021-06-22)
PROC: 3E0337Z Introduction of Electrolytic and Water Balance Substance into Peripheral Vein, Percutaneous Approach (ICD-10-PCS; 2021-06-22)
DX: E11.9 Type 2 diabetes mellitus without complications (principal); R56.9 Unspecified convulsions; N17.9 Acute kidney failure, unspecified; R55 Syncope and collapse; Z87.891 Personal history of nicotine dependence
CPT/HCPCS: 36415; 70450-TC; 80053; 80061; 81003; 82550; 82962; 83036; 83735; 84443; 84484; 84703; 85025; 85610; 85730; 90686; 93005; 93010; 99285-25; C9803; G0378; J1644; J3480; U0003; U0005

== ENCOUNTER 2022-04-06 10:12 | Day surgery (SDC) | payer OTHER ==
[2022-04-06] MEDS ORDERED: diphenhydrAMINE HCL 25 MG CAPSULE (FP) PO PRN (10:29)
[2022-04-06] MEDS ORDERED: IRON SUCROSE INJECTION 200 MG in SODIUM CHLORIDE 100 ML IVPB ONE (10:45)
[2022-04-06 12:12] VITALS: BP 124/80; PULSE 82; RESP 16; TEMP 97.9
== END 2022-04-06 12:12 | disposition home or self-care (01) ==
LOC: FM/S 10:12 → FINFUSION 10:12
PROVIDERS: ATTEND Family Medicine
PROC: 3E033GC Introduction of Other Therapeutic Substance into Peripheral Vein, Percutaneous Approach (ICD-10-PCS; principal; 2022-04-06)
DX: D50.9 Iron deficiency anemia, unspecified (principal)
CPT/HCPCS: 96365; J1756

== ENCOUNTER 2023-06-28 12:40 | Day surgery (SDC) | payer OTHER ==
[2023-06-28] MEDS: IRON SUCROSE INJECTION 200 MG in SODIUM CHLORIDE 100 ML IVPB ONE (13:05)
[2023-06-28 14:25] VITALS: BP 120/93; PULSE 72; RESP 18; TEMP 98.1
== END 2023-06-28 14:26 | disposition home or self-care (01) ==
LOC: FINFUSION 12:40 → FM/S 12:41 → FINFUSION 14:26
PROVIDERS: ATTEND Family Medicine
PROC: 3E033GC Introduction of Other Therapeutic Substance into Peripheral Vein, Percutaneous Approach (ICD-10-PCS; principal; 2023-06-28)
DX: D50.8 Other iron deficiency anemias (principal); D51.9 Vitamin B12 deficiency anemia, unspecified
CPT/HCPCS: 96365; J1756

== ENCOUNTER 2023-07-05 09:49 | Day surgery (SDC) | payer OTHER ==
[2023-07-05 11:15] VITALS: BP 112/66; PULSE 85; RESP 18; TEMP 98
[2023-07-05] MEDS: IRON SUCROSE INJECTION 200 MG in SODIUM CHLORIDE 100 ML IVPB ONE (11:15)
== END 2023-07-05 12:40 | disposition home or self-care (01) ==
LOC: FINFUSION 09:49 → FM/S 09:53 → FINFUSION 12:40
PROVIDERS: ATTEND Family Medicine
PROC: 3E033GC Introduction of Other Therapeutic Substance into Peripheral Vein, Percutaneous Approach (ICD-10-PCS; principal; 2023-07-05)
DX: D50.9 Iron deficiency anemia, unspecified (principal)
CPT/HCPCS: 96365; J1756

== ENCOUNTER 2023-07-12 10:10 | Day surgery (SDC) | payer OTHER ==
[2023-07-12] MEDS ORDERED: diphenhydrAMINE HCL 50 MG CAPSULE PO PRN (10:39)
[2023-07-12] MEDS ORDERED: HYDROCORTISONE SOD SUCCINATE 100 MG/2 ML VIAL IVPUSH PRN (10:40)
[2023-07-12] MEDS: IRON SUCROSE INJECTION 200 MG in SODIUM CHLORIDE 100 ML IVPB ONE (10:51)
[2023-07-12 11:24] VITALS: BP 131/87; PULSE 87; RESP 18; TEMP 98.8
== END 2023-07-12 12:02 | disposition home or self-care (01) ==
LOC: FINFUSION 10:10 → FM/S 10:10 → FINFUSION 12:02
PROVIDERS: ATTEND Family Medicine
PROC: 3E033GC Introduction of Other Therapeutic Substance into Peripheral Vein, Percutaneous Approach (ICD-10-PCS; principal; 2023-07-12)
DX: D50.8 Other iron deficiency anemias (principal); D51.9 Vitamin B12 deficiency anemia, unspecified
CPT/HCPCS: 96365; J1756